=== PATIENT | male | born 1940 | race Caucasian/White ===

== ENCOUNTER 2016-04-28 05:17 | Inpatient (IN) | payer BC, MEDICARE ==
--- NOTE | 2016-04-24 09:39 | PREOPHP ---
DATE OF ADMISSION: 04/28/2016 This patient is being admitted electively on 04/28/[address] Ashwin Song. CHIEF COMPLAINT: for R total knee replacement. HISTORY OF PRESENT ILLNESS: This 75-year-old man underwent a right total knee replacement on 11/05/[address] Song. The patient developed pain and swelling of the right knee and underwent a right knee prosthesis removal on . 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 The patient had a rehabilitation program postoperatively that included a 2-week convalescent period in the acute rehab unit at [facility]. The patient was also on IV antibiotics, which he completed a 6-weeks course of. He is now being admitted to have the right knee prosthesis replaced. The patient has a history of chronic atrial fibrillation. He is on Xarelto, which was discontinued preoperatively. He saw his sales recruiting coordinator, Dr. Stan Gonsalves preoperatively and was cleared for this surgery. CURRENT MEDICATIONS: 1. Simvastatin 40 mg a day. 2. Finasteride 5 mg a day. 3. Synthroid 75 mcg a day. 4. Lunesta 3 mg at bedtime. 5. Timoptic Ocudose 1 drop 2 times a day in both eyes. 6. Xalatan 1 drop at bedtime in each eye. 7. Aspirin 81 mg coated once daily, discontinued 1 week preoperatively. 8. Tamsulosin 0.4 mg twice a day. 9. Levothyroxine 88 mcg a day. 10. ProAir HFA 2 puffs 4 times a day. 11. Advair Diskus 500/50 one puff twice a day. 12. Denise 60 mg twice a day. 13. Montelukast 10 mg a day. 14. Nasonex 2 sprays in each nostril once a day. 15. Travoprost ophthalmic 1 drop in each eye in the evening. 16. Potassium citrate 10 mEq extended release 3 times a day. 17. Spiriva 1 puff once a day. 18. Vitamin D3 50,000 units once a month. PAST MEDICAL HISTORY: Remarkable for atrial fibrillation, hyperlipidemia, hypothyroidism, glaucoma, asthma, prostatism, allergic rhinitis, sleep apnea. ALLERGIES: NO KNOWN DRUG ALLERGIES. PAST SURGICAL HISTORY: Right shoulder surgery, left knee arthroscopy, colon cancer resection, left total knee replacement in 2011, right total knee replacement 10/2015, right prosthesis removed 01/2016 because of the infection. FAMILY HISTORY: Unremarkable. SOCIAL HISTORY: He does not smoke, drinks alcohol socially. 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 REVIEW OF SYSTEMS: CONSTITUTIONAL: No chills, no weight gain, no loss of appetite, no fever, no weakness, no weight loss, no fatigue. OPHTHALMOLOGIC: Negative. EARS, NOSE AND THROAT: Negative. CARDIORESPIRATORY: He denies any exertional chest pain, chest pressure. He does have atrial fibrillation, controlled rate. He does have asthma which is controlled on medications. GASTROINTESTINAL: Negative, except for constipation. HEMATOLOGIC AND LYMPHATICS: Negative, although he is on anticoagulants chronically for his atrial fibrillation. UROLOGIC: He does have difficulty urinating because of benign prostatic hypertrophy, which is controlled on medication. PHYSICAL EXAMINATION: GENERAL: At this time reveals a well-developed man in no apparent distress. VITAL SIGNS: Blood pressure 126/80, heart rate 92. HEENT: Head normocephalic. EYES: Extraocular muscles intact. NOSE AND MOUTH: Normal. NECK: Supple. No neck vein distention. HEART: Irregularly irregular rhythm. No murmurs, gallops or rubs. ABDOMEN: Soft, nontender, no masses or megaly. BACK: No spinal or CVA tenderness. EXTREMITIES: No peripheral edema. Pedal pulses are 2+ bilaterally. IMPRESSION: This patient is cleared for surgery. I will follow the patient postoperatively. Dictated By: PRACHI DAY MD, ND/NAGI Conf#: [id number] DID#: [id number] MTDD
[2016-04-28] VITALS (24 sets, daily range): BP systolic 64–140; BP diastolic 46–91; PULSE 77–160; RESP 15–22; Ht 195.6 cm; Wt 84.2 kg
[~2016-04-28] VITALS: Ht 195.6 cm; Wt 84.2 kg
[~2016-04-28 05:17] MED LIST: ALBU8.5H3 INH; ESZO3TAB12 PO; FEXO60TA20 PO; FINA5TAB4 PO; FLUT12HF IH; LEVO75TA75 PO; MONT10TA24 PO; RIVA20TA PO; SMV40T PO; TIOT18CA INHALATION; TRAV2.5D4 BOTH EYES; [UNRECOGNIZED DRUG - CODE] PO
[2016-04-28] MEDS: LACTATED RINGER'S 1,000 ML IV SCH (05:43)
[2016-04-28] MEDS ORDERED: CEFAZOLIN 2 GM/50 ML (PMX) 50 ML IVPB ONE (06:00)
[2016-04-28] MEDS ORDERED: BUPIVACAINE 0.5% (SDV) 40 ML, morphine SULFATE (PF) 10 MG, CLONIDINE 100 MCG, EPINEPHri... IRR SCH ×14 (06:00)
[2016-04-28] MEDS ORDERED: TRANEXAMIC ACID 790 MG in SOD CHLORIDE 0.9% 100 ML IVPB ONE ×6 (06:00)
[2016-04-28] MEDS ORDERED: VANCOMYCIN 500MG/NS (PMX) 100 ML IVPB ONE (06:00)
[2016-04-28] MEDS ORDERED: FAMOTIDINE 20 MG TAB PO ONE (06:00)
[2016-04-28] MEDS ORDERED: METOCLOPRAMIDE 10 MG TAB PO ONE (06:00)
[2016-04-28] MEDS ORDERED: DEXAMETHASONE 4 MG/ML 1 ML INJ IV ONE (06:00)
[2016-04-28] MEDS ORDERED: CELECOXIB 200 MG CAP PO ONE (06:00)
[2016-04-28] MEDS ORDERED: VANCOMYCIN 500MG/NS (PMX) 100 ML IVPB SCH (06:30)
[2016-04-28] MEDS ORDERED: NALOXONE (0.4 MG/ML) INJ IV PRN ×2 (06:30→08:00)
[2016-04-28] MEDS ORDERED: HYDROmorphONE 2 MG/ML SYG IV PRN (06:30)
[2016-04-28] MEDS ORDERED: HYDROmorphONE 1 MG/ML SYG IV PRN (06:30)
[2016-04-28] MEDS ORDERED: ONDANSETRON 4 MG INJ IV PRN ×2 (06:30→08:00)
[2016-04-28] MEDS ORDERED: MAGNESIUM HYDROXIDE 30ML CUP PO PRN (06:30)
[2016-04-28] MEDS ORDERED: ASPIRIN (EC) 325 MG TAB PO ONE (06:30)
[2016-04-28] MEDS ORDERED: OXYCODONE/ACETAMINOPHEN (5/325) TAB PO PRN (06:30)
[2016-04-28] MEDS ORDERED: ACETAMINOPHEN 500 MG TAB PO PRN (06:30)
[2016-04-28 06:37] LABS: INR 1.27; PT RATIO 1.3
[2016-04-28 06:38] LABS: PARTIAL THROMBOPLASTIN TIME 33.6 Sec (25.0-35.0)
[2016-04-28] MEDS ORDERED: VANCOMYCIN 1 GM INJ ONE (06:50)
[2016-04-28] MEDS ORDERED: POLYMYXIN/BACITRACIN 1L IRRIG ONE ×2 (06:50→14:59)
[2016-04-28] MEDS ORDERED: TAMS0.4C2 PO (06:58)
[2016-04-28] MEDS ORDERED: NASO17 NASAL (06:58)
[2016-04-28] MEDS ORDERED: CHOL100062 PO (06:58)
[2016-04-28] MEDS ORDERED: MIDAZOLAM 1 MG/ML 2 ML INJ ONE (07:03)
[2016-04-28] MEDS ORDERED: FENTAnyl 50 MCG/ML VIAL ONE (07:03)
[2016-04-28] MEDS ORDERED: morphine SULFATE/PF (10 MG/10 ML) INJ ONE (07:03)
[2016-04-28] MEDS ORDERED: DIPHENHYDRAMINE 50 MG INJ IV PRN (08:00)
[2016-04-28] MEDS ORDERED: FENTAnyl 50 MCG/ML VIAL IV PRN (08:00)
[2016-04-28] MEDS ORDERED: HYDROmorphONE (0.2 MG/ML) 10ML SYG IV PRN ×2 (08:00)
[2016-04-28] MEDS ORDERED: MEPERIDINE 25 MG INJ IV PRN (08:00)
[2016-04-28] MEDS ORDERED: TOBRAMYCIN 1.2 GM POWDER ONE ×2 (08:14→08:25)
--- NOTE | 2016-04-28 10:03 | RADRPT ---
PROCEDURE: XR Right Tibia and Fibula. CLINICAL INDICATION: Right lower leg pain. Intraoperative. TECHNIQUE: Single frontal view. Limited. COMPARISON: No prior studies are available for comparison. FINDINGS: This is a limited study as the knee is not included on the image. There is a surgical device overly ing the ankle. IMPRESSION: 1. Satisfactory limited frontal view of the right tibia and fibula. RPTAT: QQ .Elmer Torres MD, MD Date Time Electronically viewed and signed by .Elmer Torres MD, MD on 04/28/2016 10:02 .R/
[2016-04-28] MEDS ORDERED: LIDOCAINE 2% (SDV) 5 ML INJ ONE (10:38)
[2016-04-28] MEDS ORDERED: ETOMIDATE 20 MG INJ ONE (10:38)
[2016-04-28] MEDS ORDERED: ROCURONIUM 50 MG INJ ONE (10:38)
[2016-04-28] MEDS ORDERED: ONDANSETRON 4 MG INJ ONE (10:38)
[2016-04-28] MEDS ORDERED: ROPIVACAINE 0.5 % 30 ML VIAL ONE (11:02)
[2016-04-28] MEDS ORDERED: BUPIVACAINE 0.25%/EPI (SDV) 30 ML INJ ONE (11:03)
[2016-04-28] MEDS ORDERED: DILTIAZEM 25 MG INJ IV ONE (12:30)
[2016-04-28] MEDS ORDERED: DILTIAZEM-D5W 125MG/125ML DRIP 125 ML IV SCH (12:30)
--- NOTE | 2016-04-28 14:54 | RADRPT ---
PROCEDURE: Right knee radiographs. CLINICAL INDICATION: Right knee pain. Postop. TECHNIQUE: Two views. Frontal and lateral. COMPARISON: 02/04/2016. FINDINGS: There is no fracture or dislocation. The soft tissues are normal. There is a total right knee arthroplasty revision which appears satisfactory. There is no lytic or blastic lesion. There is a joint effusion. IMPRESSION: 1. Right knee arthroplasty revision. 2. Fluid in the joint. 3. No lytic lesion. RPTAT: QQ .Elmer Torres MD, MD Date Time Electronically viewed and signed by .Elmer Torres MD, MD on 04/28/2016 14:53 .R/
[2016-04-28 15:13] LABS: HEMATOCRIT 32.5 % (42.0-52.0); HEMOGLOBIN 10.5 g/dl (14.0-18.0); MEAN CORPUSCULAR HEMOGLOBIN 26.3 pg (29.0-33.0); MEAN CORPUSCULAR HGB CONC 32.4 g/dl (32.0-37.0); MEAN CORPUSCULAR VOLUME 81.2 fl (82.0-101.0); PLATELET COUNT 190 10^3/UL (140-440); RED BLOOD COUNT 3.99 10^6/ul (4.70-6.10); RED CELL DISTRIBUTION WIDTH 16.9 % (11.5-14.5); UNCORRECTED WBC 9.5 10^3/ul (4.8-10.8); WHITE BLOOD COUNT 9.5 10^3/ul (4.8-10.8)
[2016-04-28 15:21] LABS: CONDITION 1; LH ANALYZER COMMENTS 1
[2016-04-28 15:32] LABS: CREATININE 0.52 mg/dl (0.61-1.24); POTASSIUM 4.4 mmol/L (3.5-5.1)
[2016-04-28 15:33] LABS: CALCIUM 8.9 mg/dl (8.4-10.2)
[2016-04-28 16:00] LABS: ANISOCYTOSIS 1+; HYPOCHROMASIA 2+; MICROCYTOSIS 1+; PLATELET ESTIMATE PLT APPEAR ADEQUATE
[2016-04-28] MEDS: D5W-0.45 NACL + KCL 20 MEQ 1,000 ML IV SCH ×2 (16:13→16:22)
[2016-04-28] MEDS: traMADol 50 MG TAB PO SCH (17:47)
[2016-04-28] MEDS ORDERED: ESZOPICLONE 3 MG PO SCH (19:00)
[2016-04-28] MEDS: VANCOMYCIN 1 GM in NS 250 ML IVPB SCH (19:32)
--- NOTE | 2016-04-28 20:46 | CONS ---
Date/Time of Note Date/Time of Note DATE: 04/28/16 TIME: 20:39 Assessment/Plan Assessment/Plan Additional Assessment/Plan A/P: This 75-year-old man underwent a right total knee replacement on [address] Song. The patient developed pain and swelling of the right knee and underwent a right knee prosthesis removal on 02/04/2016. 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 The patient had a rehabilitation program postoperatively that included a 2-week convalescent period in the acute rehab unit at . The patient was also on IV antibiotics, which he completed a 6-weeks course of. He is now being admitted to have the right knee prosthesis replaced. The patient has a history of chronic atrial fibrillation. He is on Xarelto, which was discontinued preoperatively. He saw his wait staff, Dr. Stan Gonsalves preoperatively and was cleared for this surgery. 1) Afib with RVR: patient HR in 160's post operatively, started on Cardizem drip , titrate for HR <110, improved now -start on short acting CCB, monitor HR, avoid BB due to reactive airway -Cardizem 30mg po q8h, hold for hypotension/ananda 2) s/p R knee ORIF, appropriate pain, no neurovascular compromise. check AM Labs -pain meds: start neurotin, oxycotin, oxycodone prn, dilaudid prn -rehab in AM 3) BPH: meds, d/c palm in AM 4) Hypothyroid: synthriod 5) Glaucoma: ggt 6) FULL CODE For Dr. Jones Consultation Date/Type/Reason Admit Date/Time Apr 28, 2016 at 05:17 Initial Consult Date Type of Consultation: Medicine Reason for Consultation AFib with RVR, pain, medical management of COPD 24 HR Interval Summary Constitutional: no complaints Exam/Review of Systems Vital Signs Vitals Vital Signs Date Time Temp Pulse Resp B/P Pulse Ox O2 Delivery O2 Flow Rate FiO2 04/28/16 20:07 97.5 86 18 107/67 96 04/28/16 13:16 Nasal Cannula 04/28/16 12:46 3.0 Intake and Output 04/27/16 04/27/16 04/28/16 15:00 23:00 07:00 Intake Total 1000 ml Balance 1000 ml Exam Constitutional: alert, oriented, well developed Psych: no complaints Head: atraumatic, normocephalic Eyes: nl conjunctiva Neck: supple Respiratory: clear to auscultation, normal air movement Cardiovascular: irregular rhythm, systolic murmur Gastrointestinal: soft Musculoskeletal: nl extremities to inspection, other Extremities: normal pulses Neurological: GYM MANAGER II-XII intact, nl mental status Skin: nl turgor Additional Comments R knee dressing d/c/i, no edema, no toe cyanosis Results Result Diagram: 04/28/16 1455 04/28/16 1455 Results 24 hrs Laboratory Tests Test 04/28/16 06:10 04/28/16 14:55 Activated Partial Thromboplast Time 33.6 INR International Normalized Ratio 1.27 Prothrombin Time 16.0 H Prothrombin Time Ratio 1.3 Anion Gap 11 Anisocytosis 1+ Basophils # Basophils % Blood Morphology Comment Blood Urea Nitrogen 15 Calcium Level 8.9 Carbon Dioxide Level 24 Chloride Level 106 Creatinine 0.52 L Eosinophils # Eosinophils % Glucose Level 185 Hematocrit 32.5 L Hemoglobin 10.5 L Hypochromasia 2+ Lymphocytes # Lymphocytes % Mean Corpuscular Hemoglobin 26.3 L Mean Corpuscular Hemoglobin Concent 32.4 Mean Corpuscular Volume 81.2 L Mean Platelet Volume 9.0 Microcytosis 1+ Monocytes # Monocytes % Neutrophils # Neutrophils % Nucleated Red Blood Cells # Nucleated Red Blood Cells % Platelet Count 190 # Platelet Estimate PLT APPEAR ADEQUATE Potassium Level 4.4 Red Blood Count 3.99 L Red Cell Distribution Width 16.9 H Sodium Level 137 White Blood Count 9.5 # Medications Medications Current Medications Lactated Ringer's (Lr) 1,000 ml @ 25 mls/hr Q24H IV ; Start 04/28/16 at 05:43 Tramadol HCl (Ultram) 50 mg Q6 PO Last administered on 04/28/16t 17:47; Admin Dose 50 MG; Start 04/28/16 at 18:00 Oxycodone/ Acetaminophen (Percocet (5/ 325)) 1 tab Q3H PRN PO PAIN LEVEL 1-5; Start 04/28/16 at 06:30 Oxycodone/ Acetaminophen (Percocet (5/ 325)) 2 tab Q3H PRN PO PAIN LEVEL 6-10; Start 04/28/16 at 06:30 Hydromorphone HCl (Dilaudid) 1 mg Q3H PRN IV PAIN LEVEL 1-3 Last administered on 04/28/16 15:12; Admin Dose 1 MG; Start 04/28/16 at 06:30 Hydromorphone HCl (Dilaudid) 1.5 mg Q3H PRN IV PAIN LEVEL 4-6 Last administered on 04/28/16 18:30; Admin Dose 1.5 MG; Start 04/28/16 at 06:30 Hydromorphone HCl (Dilaudid) 2 mg Q3H PRN IV PAIN LEVEL 7-10; Start 04/28/16 at 06:30 Naloxone HCl (Narcan) 0.2 mg Q2M PRN IV RESPIRATORY RATE LESS THAN 8; Start at 06:30 Senna/Docusate Sodium (Senokot-S) 1 tab BID PO ; Start 04/28/16 at 21:00 Magnesium Hydroxide (Milk Of Mag) 30 ml BID PRN PO CONSTIPATION; Start at 06:30 Magnesium Hydroxide (Milk Of Mag) 30 ml HS PO ; Start 04/30/16 at 21:00 Ondansetron HCl (Zofran Inj) 4 mg Q4H PRN IV NAUSEA; Start 04/28/16 at 06:30 Acetaminophen (Tylenol Tab) 1,000 mg Q4H PRN PO TEMP GREATER THAN 100.4 (ORAL) ; Start 04/28/16 at 06:30 Celecoxib (Celebrex) 200 mg BID PO ; Start 04/28/16 at 21:00 Famotidine (Pepcid) 20 mg BID PO ; Start 04/28/16 at 21:00 Metoclopramide HCl (Reglan) 10 mg BID PO ; Start 04/28/16 at 21:00 Aspirin 325 mg 325 mg BID PO ; Start 04/29/16 at 09:00 Potassium Chloride/Dextrose/ Sod Cl (D5-1/2ns + KCl 20 Meq) 1,000 ml @ 100 mls/ hr Q10H IV Last administered on 04/28/16 16:13; Admin Dose 100 MLS/HR; Start 04/28/16 at 06:22 Naloxone HCl 0.2 mg 0.2 mg Q2M PRN IV FOR RESP RATE 8 OR LESS; Start 04/28/16 at 08:00; Stop 04/29/16 at 07:00 Diltiazem HCl 125 ml @ 5 mls/hr TITRATE IV Last administered on 04/28/16t 12:22 ; Admin Dose 3 MLS/HR; Start 04/28/16 at 12:30 Vancomycin HCl (Vancocin) 250 ml @ 125 mls/hr Q12H IVPB Last administered on t 19:32; Admin Dose 125 MLS/HR; Start 04/28/16 at 18:00; Stop 04/29/16 at 07:59 Influenza Virus Vaccine (Fluzone) 0.5 ml ONCE ONCE IM* ; Start 04/29/16 at 09:00 ; Stop 04/29/16 at 09:01 Albuterol (Ventolin Hfa) 2 puff Q4 INH ; Start 04/28/16 at 21:00 Finasteride (Proscar) 5 mg DAILY PO ; Start 04/29/16 at 09:00 Levothyroxine Sodium (Synthroid) 75 mcg DAILY PO ; Start 04/29/16 at 09:00 Montelukast Sodium (Singulair) 10 mg QHS PO ; Start 04/28/16 at 21:00 Tamsulosin HCl (Flomax) 0.4 mg BID PO ; Start 04/28/16 at 21:00 Tiotropium Winn (Spiriva) 1 inh DAILY INH ; Start 04/29/16 at 09:00 Zolpidem Tartrate (Ambien) 5 mg HS PRN PO INSOMNIA; Start 04/28/16 at 19:30 Loratadine (Claritin) 10 mg DAILY PO ; Start 04/29/16 at 09:00 Fluticasone Propionate (Flonase 0.05% Nasal) 1 spray DAILY NASAL ; Start at 09:00 Latanoprost (Xalatan) 1 drop QHS BOTH EYES ; Start 04/28/16 at 21:00 Atorvastatin Calcium (Lipitor) 20 mg DAILY@21 PO ; Start 04/28/16 at 21:00 Salmeterol Xinafoate/ Fluticasone (Advair 250/50 Diskus) 1 inh BID INH ; Start 04/28/16 at 21:00 YOCASTA RODRIGUEZ MD Apr 28, 2016 20:45
[2016-04-28] MEDS: CELECOXIB 200 MG CAP PO SCH ×2 (21:00→21:29)
[2016-04-28] MEDS ORDERED: TRAVOPROST 0.004% 2.5 ML OPH BOTH EYES SCH (21:00)
[2016-04-28] MEDS ORDERED: FEXOFENADINE HCL 60 MG PO SCH ×2 (21:00)
[2016-04-28] MEDS ORDERED: NON-FORMULARY/PATIENT OWN MED (Salmeterol Xinaf-Fluticasone* (Advair HFA*) 2 INH) IH SCH (21:00)
[2016-04-28] MEDS: HYDROmorphONE 2 MG/ML SYG IV PRN (21:26)
[2016-04-28] MEDS: TAMSULOSIN (SR) 0.4 MG CAP PO SCH (21:29)
[2016-04-28] MEDS: MONTELUKAST 10 MG TAB PO SCH (21:29)
[2016-04-28] MEDS: LATANOPROST 0.005% 2.5 ML OPH BOTH EYES SCH (21:29)
[2016-04-28] MEDS: ALBUTEROL HFA 8 GM INHALER INH SCH (21:30)
[2016-04-28] MEDS: ATORVASTATIN 20 MG TAB PO SCH (21:31)
[2016-04-28] MEDS: FAMOTIDINE 20 MG TAB PO SCH (21:31)
[2016-04-28] MEDS: METOCLOPRAMIDE 10 MG TAB PO SCH (21:31)
[2016-04-28] MEDS: SENNA/DOCUSATE NA (8.6MG/50MG) TAB PO SCH (21:31)
[2016-04-28] MEDS: ZOLPIDEM 5 MG TAB PO PRN (23:17)
[2016-04-28] MEDS: SALMETEROL/FLUTICASONE 250/50 INHA INH SCH (23:17)
[2016-04-29] VITALS (13 sets, daily range): BP systolic 105–123; BP diastolic 64–78; PULSE 70–90; RESP 17–18
[2016-04-29] MEDS: ALBUTEROL HFA 8 GM INHALER INH SCH ×6 (01:00→20:59)
[2016-04-29] MEDS: D5W-0.45 NACL + KCL 20 MEQ 1,000 ML IV SCH ×3 (02:22→21:00)
[2016-04-29] MEDS: HYDROmorphONE 2 MG/ML SYG IV PRN ×5 (03:04→20:35)
[2016-04-29] MEDS: VANCOMYCIN 1 GM in NS 250 ML IVPB SCH (04:36)
[2016-04-29] MEDS: DILTIAZEM 30 MG TAB PO SCH ×5 (04:37→23:32)
[2016-04-29] MEDS: LACTATED RINGER'S 1,000 ML IV SCH (04:38)
[2016-04-29] MEDS: traMADol 50 MG TAB PO SCH ×5 (04:38→23:32)
--- NOTE | 2016-04-29 07:10 | OPR ---
DATE OF OPERATION: 04/28/2016 SURGEON: Ashwin Song MD ANNEALER: Suraj Wilson MD The assistance functioned throughout the case to protect the collateral ligament patellar tendon and allow for positioning of the knee and cementation technique and was instrumental to the performance of this procedure. OPERATION: Explant antibiotic impregnated knee replacement revision, Terrie, with 20-mm diameter femoral stem size G, 6 tibia with stem 14-mm plastic, 35-mm poly. ANESTHESIA: Spinal plus general plus right adduction nerve block. DESCRIPTION OF PROCEDURE: Patient was taken to the operating room, given spinal anesthesia, general anesthesia. Right lower extremity prepped and draped in usual manner. Right knee lacked 5 degrees of extension, flexed to 120. Median parapatellar incision was made. A 3-inch incision made VMO. There was no fluid, no sign of purulents. No significant inflammatory synovium. Nonetheless, we took 5 biopsies from superior pouch intercondylar medial lateral gutters, and posterior. Called pathology who did 5 frozen sections and saw occasional rare WBCs, none even close to 5 white cells per high-powered field. It was therefore felt to be safe to proceed with explant. The all-poly tibia was removed without problems. Femur came off easily. We were able to remove all the cement with minimal bone loss. He had some bone loss on the medial distal femur on his original surgery and slight decrease on the lateral. Tibia was delivered. External guide to first do a small re-cut. The intermedullary guide was then used. Three #3 offset on the tibial stem was required for rotation and tibial coverage. This was then fixed, stabilized. The femur was then reamed up to an 18 femur placed. An additional 3 to 5 degrees of external rotation was carried out, going with the epicondylar access. Intraoperative x-rays were taken, demonstrating that the femur was slightly lateral. This was then removed, and then we medialized the box so as to medialize the femur 3 to 4 mm. We had a 10-mm distal medial augment, 5-mm distal lateral augment, and a 5-mm posterolateral augment. With a 14, we had complete extension, trace to 1+ varus valgus symmetric laxity, and trace to 1+ AP drawer. The patella tracked with trial no-touch technique. The tourniquet had been inflated for exposure 20 minutes and left down for the remainder of the case, and then put up for cementing. The tibia was cemented first, then the femur, then set up with a trial 14, and all poly, 35 all poly patella. A 14 polyethylene was chosen with similar laxity pattern as noted above. Tourniquet released and it was 12 minutes. Hemostasis was excellent. The capsule was closed with interrupted #1 Vicryl, subcutaneous closed with 2-0 and 3-0 Dexon, skin closed with 4-0 subcuticular Maxon with Steri-Strips. LISBETH compressive dressing applied. The adductor nerve block was performed at the end. The patient tolerated the procedure well. Dictated By: ASHWIN BACON/NAGI Conf#: [id number] DID#: [id number] MTDD
[2016-04-29 07:26] LABS: BASOPHILS % 0.1 % (0.0-2.0); HEMATOCRIT 28.6 % (42.0-52.0); HEMOGLOBIN 9.6 g/dl (14.0-18.0); LYMPHOCYTES # 1.5 10^3/ul (0.8-2.9); LYMPHOCYTES % 14.2 % (15.0-51.0); MEAN CORPUSCULAR HEMOGLOBIN 27.1 pg (29.0-33.0); MEAN CORPUSCULAR HGB CONC 33.4 g/dl (32.0-37.0); MEAN CORPUSCULAR VOLUME 80.9 fl (82.0-101.0); MEAN PLATELET VOLUME 9.7 fl (7.4-10.4); MONOCYTE # 1.3 10^3/ul (0.3-0.9); MONOCYTES % 12.4 % (0.0-11.0); NEUTROPHIL # 7.5 10^3/ul (1.6-7.5); NEUTROPHILS % 73.3 % (39.0-77.0); PLATELET COUNT 185 10^3/UL (140-440); RED BLOOD COUNT 3.53 10^6/ul (4.70-6.10); RED CELL DISTRIBUTION WIDTH 17.3 % (11.5-14.5); UNCORRECTED WBC 10.3 10^3/ul (4.8-10.8); WHITE BLOOD COUNT 10.3 10^3/ul (4.8-10.8)
[2016-04-29 07:36] LABS: POTASSIUM 4.8 mmol/L (3.5-5.1)
[2016-04-29 07:39] LABS: CREATININE 0.66 mg/dl (0.61-1.24)
[2016-04-29 07:40] LABS: CALCIUM 9.1 mg/dl (8.4-10.2)
[2016-04-29 07:43] LABS: CONDITION 1; LH ANALYZER COMMENTS 1
--- NOTE | 2016-04-29 07:56 | CONS ---
Date/Time of Note Date/Time of Note DATE: 04/29/16 TIME: 07:47 Assessment/Plan Assessment/Plan Chief Complaint/Hosp Course 1. one day post op a R TKR . 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 2. A fib , controlled rate , will restart Xarelto today . Cardiology consultation . 3, asthma , controlled 4. sleep apnea , he is using his CPAP machine Problems: Consultation Date/Type/Reason Admit Date/Time Apr 28, 2016 at 05:17 Initial Consult Date Type of Consultation: Medicine 24 HR Interval Summary Free Text/Dictation He is now 1 day post op a R TKR . He had an episode of uncontrolled A Fib . He is now in controlled rate . Constitutional: improved, no complaints Exam/Review of Systems Vital Signs Vitals Vital Signs Date Time Temp Pulse Resp B/P Pulse Ox O2 Delivery O2 Flow Rate FiO2 04/29/16 04:08 97.5 80 18 107/67 96 04/28/16 20:00 Room Air 04/28/16 12:46 3.0 Intake and Output 04/28/16 04/28/16 04/29/16 15:00 23:00 07:00 Intake Total 307.9 ml 350 ml 740 ml Output Total 1100 ml 700 ml 800 ml Balance -792.1 ml -350 ml -60 ml Exam Constitutional: alert, oriented, well developed Psych: nl mood/affect, no complaints Respiratory: clear to auscultation, normal air movement Cardiovascular: irregular rhythm Gastrointestinal: soft Musculoskeletal: nl extremities to inspection Results Result Diagram: 04/29/16 0615 04/29/16 0615 Results 24 hrs Laboratory Tests Test 04/28/16 14:55 04/29/16 06:15 Anion Gap 11 12 Anisocytosis 1+ Basophils # 0.0 Basophils % 0.1 Blood Morphology Comment Blood Urea Nitrogen 15 17 Calcium Level 8.9 9.1 Carbon Dioxide Level 24 28 Chloride Level 106 102 Creatinine 0.52 L 0.66 Eosinophils # 0.0 Eosinophils % 0.0 Glucose Level 185 117 # Hematocrit 32.5 L 28.6 L Hemoglobin 10.5 L 9.6 L Hypochromasia 2+ Lymphocytes # 1.5 Lymphocytes % 14.2 L Mean Corpuscular Hemoglobin 26.3 L 27.1 L Mean Corpuscular Hemoglobin Concent 32.4 33.4 Mean Corpuscular Volume 81.2 L 80.9 L Mean Platelet Volume 9.0 9.7 Microcytosis 1+ Monocytes # 1.3 H Monocytes % 12.4 H Neutrophils # 7.5 Neutrophils % 73.3 Nucleated Red Blood Cells # 0.0 Nucleated Red Blood Cells % 0.0 Platelet Count 190 # 185 Platelet Estimate PLT APPEAR ADEQUATE Potassium Level 4.4 4.8 Red Blood Count 3.99 L 3.53 L Red Cell Distribution Width 16.9 H 17.3 H Sodium Level 137 137 White Blood Count 9.5 # 10.3 Medications Medications Current Medications Lactated Ringer's (Lr) 1,000 ml @ 25 mls/hr Q24H IV ; Start 04/28/16 at 05:43 Tramadol HCl (Ultram) 50 mg Q6 PO Last administered on 04/29/16 04:38; Admin Dose 50 MG; Start 04/28/16 at 18:00 Oxycodone/ Acetaminophen (Percocet (5/ 325)) 1 tab Q3H PRN PO PAIN LEVEL 1-5; Start 04/28/16 at 06:30 Oxycodone/ Acetaminophen (Percocet (5/ 325)) 2 tab Q3H PRN PO PAIN LEVEL 6-10; Start 04/28/16 at 06:30 Hydromorphone HCl (Dilaudid) 1 mg Q3H PRN IV PAIN LEVEL 1-3 Last administered on 04/28/16 15:12; Admin Dose 1 MG; Start 04/28/16 at 06:30 Hydromorphone HCl (Dilaudid) 1.5 mg Q3H PRN IV PAIN LEVEL 4-6 Last administered on 04/28/16 18:30; Admin Dose 1.5 MG; Start 04/28/16 at 06:30 Hydromorphone HCl (Dilaudid) 2 mg Q3H PRN IV PAIN LEVEL 7-10 Last administered on 04/29/16 03:04; Admin Dose 2 MG; Start 04/28/16 at 06:30 Naloxone HCl (Narcan) 0.2 mg Q2M PRN IV RESPIRATORY RATE LESS THAN 8; Start at 06:30 Senna/Docusate Sodium (Senokot-S) 1 tab BID PO Last administered on 04/28/16 21:31; Admin Dose 1 TAB; Start 04/28/16 at 21:00 Magnesium Hydroxide (Milk Of Mag) 30 ml BID PRN PO CONSTIPATION; Start at 06:30 Magnesium Hydroxide (Milk Of Mag) 30 ml HS PO ; Start 04/30/16 at 21:00 Ondansetron HCl (Zofran Inj) 4 mg Q4H PRN IV NAUSEA; Start 04/28/16 at 06:30 Acetaminophen (Tylenol Tab) 1,000 mg Q4H PRN PO TEMP GREATER THAN 100.4 (ORAL) ; Start 04/28/16 at 06:30 Celecoxib (Celebrex) 200 mg BID PO ; Start 04/28/16 at 21:00 Famotidine (Pepcid) 20 mg BID PO Last administered on 04/28/16 21:31; Admin Dose 20 MG; Start 04/28/16 at 21:00 Metoclopramide HCl (Reglan) 10 mg BID PO Last administered on 04/28/16 21:31; Admin Dose 10 MG; Start 04/28/16 at 21:00 Aspirin 325 mg 325 mg BID PO ; Start 04/29/16 at 09:00 Potassium Chloride/Dextrose/ Sod Cl 1,000 ml @ 100 mls/hr Q10H IV Last administered on 04/28/16 16:13; Admin Dose 100 MLS/HR; Start 04/28/16 at 06:22 Vancomycin HCl (Vancocin) 250 ml @ 125 mls/hr Q12H IVPB Last administered on 04:36; Admin Dose 125 MLS/HR; Start 04/28/16 at 18:00; Stop 04/29/16 at 07:59 Influenza Virus Vaccine (Fluzone) 0.5 ml ONCE ONCE IM* ; Start 04/29/16 at 09:00 ; Stop 04/29/16 at 09:01 Albuterol (Ventolin Hfa) 2 puff Q4 INH Last administered on 04/29/16 04:37; Admin Dose 2 PUFF; Start 04/28/16 at 21:00 Finasteride (Proscar) 5 mg DAILY PO ; Start 04/29/16 at 09:00 Levothyroxine Sodium (Synthroid) 75 mcg DAILY PO ; Start 04/29/16 at 09:00 Montelukast Sodium (Singulair) 10 mg QHS PO Last administered on 04/28/16 21: 29; Admin Dose 10 MG; Start 04/28/16 at 21:00 Tamsulosin HCl (Flomax) 0.4 mg BID PO Last administered on 04/28/16 21:29; Admin Dose 0.4 MG; Start 04/28/16 at 21:00 Tiotropium Artesian (Spiriva) 1 inh DAILY INH ; Start 04/29/16 at 09:00 Zolpidem Tartrate (Ambien) 5 mg HS PRN PO INSOMNIA Last administered on 23:17; Admin Dose 5 MG; Start 04/28/16 at 19:30 Loratadine (Claritin) 10 mg DAILY PO ; Start 04/29/16 at 09:00 Fluticasone Propionate (Flonase 0.05% Nasal) 1 spray DAILY NASAL ; Start at 09:00 Latanoprost (Xalatan) 1 drop QHS BOTH EYES Last administered on 04/28/16 21:29 ; Admin Dose 1 DROP; Start 04/28/16 at 21:00 Atorvastatin Calcium (Lipitor) 20 mg DAILY@21 PO Last administered on 21:31; Admin Dose 20 MG; Start 04/28/16 at 21:00 Salmeterol Xinafoate/ Fluticasone (Advair 250/50 Diskus) 1 inh BID INH Last administered on 04/28/16 23:17; Admin Dose 1 INH; Start 04/28/16 at 21:00 Diltiazem HCl (Cardizem) 30 mg Q6 PO Last administered on 04/29/16 04:37; Admin Dose 30 MG; Start 04/29/16 at 00:00 PRACHI DAY MD Apr 29, 2016 07:56
[2016-04-29] MEDS: CELECOXIB 200 MG CAP PO SCH ×2 (09:00→20:38)
[2016-04-29] MEDS ORDERED: ASPIRIN (EC) 325 MG TAB PO SCH (09:00)
[2016-04-29] MEDS ORDERED: NON-FORMULARY/PATIENT OWN MED (Simvastatin 40 MG) PO SCH (09:00)
[2016-04-29] MEDS: METOCLOPRAMIDE 10 MG TAB PO SCH ×2 (09:00→20:39)
[2016-04-29] MEDS ORDERED: MOMETASONE FUROATE NASAL SCH (09:00)
[2016-04-29] MEDS ORDERED: INFLUENZA VIRUS VACCINE 0.5 ML SYG IM* ONE (09:00)
[2016-04-29] MEDS: FLUTICASONE 0.05% 16 GM NAS SPRAY NASAL SCH (09:10)
[2016-04-29] MEDS: TIOTROPIUM 18 MCG CAPSULE INHA DEV INH SCH (09:10)
[2016-04-29] MEDS: LORATADINE 10 MG TAB PO SCH (09:11)
[2016-04-29] MEDS: TAMSULOSIN (SR) 0.4 MG CAP PO SCH ×2 (09:12→20:38)
[2016-04-29] MEDS: FAMOTIDINE 20 MG TAB PO SCH ×2 (09:12→20:39)
[2016-04-29] MEDS: LEVOTHYROXINE 75 MCG TAB PO SCH (09:13)
[2016-04-29] MEDS: SENNA/DOCUSATE NA (8.6MG/50MG) TAB PO SCH ×2 (09:13→20:39)
--- NOTE | 2016-04-29 09:40 | PN ---
DATE: 04/28/2016 TIME: 7 in the morning. The patient is comfortable. Vital signs stable. Decreased knee pain. No calf pain. IMPRESSION: 1. Status post right total knee revision. 2. Cardiac arrhythmia. PLAN: Per mobilized, medical per Dr. Trujillo. I transferred to the orthopedic when stable. Dictated By: DEON BACON/NAGI Conf#: [id number] DID#: [id number]
[2016-04-29] MEDS: SALMETEROL/FLUTICASONE 250/50 INHA INH SCH ×2 (11:27→20:43)
[2016-04-29] MEDS: FINASTERIDE 5 MG TAB PO SCH (11:27)
[2016-04-29] MEDS ORDERED: PNEUMOC 13-VAL CONJ-DIP CRM/PF 0.5 ML SYR IM* ONE (12:30)
[2016-04-29] MEDS: DOCUSATE SODIUM 100 MG CAP PO SCH ×2 (13:23→20:38)
[2016-04-29] MEDS: RIVAROXABAN 20 MG TABLET PO SCH (17:56)
[2016-04-29] MEDS ORDERED: RIVAROXABAN 20 MG TABLET PO SCH (18:05)
[2016-04-29] MEDS: ATORVASTATIN 20 MG TAB PO SCH (20:38)
[2016-04-29] MEDS: LATANOPROST 0.005% 2.5 ML OPH BOTH EYES SCH (20:57)
[2016-04-29] MEDS: MONTELUKAST 10 MG TAB PO SCH (21:09)
--- NOTE | 2016-04-29 21:57 | CONS ---
Date/Time of Note Date/Time of Note DATE: 04/29/16 TIME: 21:55 Assessment/Plan Assessment/Plan Chief Complaint/Hosp Course 1. Afib- chronic - cont rate control, switch to po dilt long acting - cont anticoag with xarelto, restart tonight 2. s/p R TKA, c/b infection previously - cont abx - cont pain control per primary/ortho 3. ELIANA - cont cpap Problems: Consultation Date/Type/Reason Admit Date/Time Apr 28, 2016 at 05:17 Date of Consultation: Apr 29, 2016 Type of Consultation: Cardiology Reason for Consultation Afib Referring Provider: PRACHI DAY MD s 75-year-old man with h/ of afib chronic on xarelto. Pt complicated course s/ p R TKA 10/2015 with prosthetic infxn requiring removal and IV abx. Pt now s/p replacement of r right knee. Pt doing wel post op but did have afib with increased rate. Pt denies cp,sob, palp, dizziness. he states xarelto will be started toda. Rate improved with iv diltiazem. still with r knee pain post procedure. worse with movement better with rest. Constitutional: improved, no complaints Eyes: no complaints ENT: no complaints Respiratory: no complaints Cardiovascular: no complaints Gastrointestinal: no complaints Genitourinary: no complaints Musculoskeletal: bone/joint pain Skin: no complaints Neurologic: no complaints Lymphatic: no complaints Psychological: nl mood/affect, no complaints Immunologic: no complaints Past Medical History Remarkable for atrial fibrillation, hyperlipidemia, hypothyroidism, glaucoma, asthma, prostatism, allergic rhinitis, sleep apnea. Past Surgical History Right shoulder surgery, left knee arthroscopy, colon cancer resection, left total knee replacement in 2011, right total knee replacement 10/2015, right prosthesis removed 01/2016 because of the infection. Family History Significant Family History: no pertinent family hx, other (no cad) Social History Alcohol Use: none Smoking Status: Never smoker Drug Use: none Exam/Review of Systems Vital Signs Vitals Vital Signs Date Time Temp Pulse Resp B/P Pulse Ox O2 Delivery O2 Flow Rate FiO2 04/29/16 20:44 90 04/29/16 20:35 98.5 17 123/78 95 04/28/16 20:00 Room Air 04/28/16 12:46 3.0 Intake and Output 04/28/16 04/28/16 04/29/16 15:00 23:00 07:00 Intake Total 307.9 ml 350 ml 740 ml Output Total 1100 ml 700 ml 800 ml Balance -792.1 ml -350 ml -60 ml Exam Constitutional: alert, oriented Psych: no complaints Head: atraumatic, normocephalic Eyes: nl conjunctiva ENMT: mucosa pink and moist, nl nasal mucosa & septum Neck: non-tender, supple, No jvd Respiratory: clear to auscultation, normal air movement Cardiovascular: irregular rhythm ( m), nl pulses, systolic murmur, NoS3 No S4 Gastrointestinal: nl liver, spleen, soft Musculoskeletal: joint tenderness, other (r knee c/d/i) Extremities: normal pulses 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, nl mental status, nl speech Results Result Diagram: 04/29/1661404/29/16614 Results 24 hrs Laboratory Tests Test 04/29/16 06:15 Anion Gap 12 Basophils # 0.0 Basophils % 0.1 Blood Morphology Comment Blood Urea Nitrogen 17 Calcium Level 9.1 Carbon Dioxide Level 28 Chloride Level 102 Creatinine 0.66 Eosinophils # 0.0 Eosinophils % 0.0 Glucose Level 117 # Hematocrit 28.6 L Hemoglobin 9.6 L Lymphocytes # 1.5 Lymphocytes % 14.2 L Mean Corpuscular Hemoglobin 27.1 L Mean Corpuscular Hemoglobin Concent 33.4 Mean Corpuscular Volume 80.9 L Mean Platelet Volume 9.7 Monocytes # 1.3 H Monocytes % 12.4 H Neutrophils # 7.5 Neutrophils % 73.3 Nucleated Red Blood Cells # 0.0 Nucleated Red Blood Cells % 0.0 Platelet Count 185 Potassium Level 4.8 Red Blood Count 3.53 L Red Cell Distribution Width 17.3 H Sodium Level 137 White Blood Count 10.3 Medications Medications Current Medications Lactated Ringer's (Lr) 1,000 ml @ 25 mls/hr Q24H IV ; Start 04/28/16 at 05:43 Tramadol HCl (Ultram) 50 mg Q6 PO Last administered on 04/29/16t 17:56; Admin Dose 50 MG; Start 04/28/16 at 18:00 Oxycodone/ Acetaminophen (Percocet (5/ 325)) 1 tab Q3H PRN PO PAIN LEVEL 1-5; Start 04/28/16 at 06:30 Oxycodone/ Acetaminophen (Percocet (5/ 325)) 2 tab Q3H PRN PO PAIN LEVEL 6-10; Start 04/28/16 at 06:30 Hydromorphone HCl (Dilaudid) 1 mg Q3H PRN IV PAIN LEVEL 1-3 Last administered on 04/28/16 15:12; Admin Dose 1 MG; Start 04/28/16 at 06:30 Hydromorphone HCl (Dilaudid) 1.5 mg Q3H PRN IV PAIN LEVEL 4-6 Last administered on 04/28/16 18:30; Admin Dose 1.5 MG; Start 04/28/16 at 06:30 Hydromorphone HCl (Dilaudid) 2 mg Q3H PRN IV PAIN LEVEL 7-10 Last administered on 04/29/16 20:35; Admin Dose 2 MG; Start 04/28/16 at 06:30 Naloxone HCl (Narcan) 0.2 mg Q2M PRN IV RESPIRATORY RATE LESS THAN 8; Start at 06:30 Senna/Docusate Sodium (Senokot-S) 1 tab BID PO Last administered on 04/29/16 20:39; Admin Dose 1 TAB; Start 04/28/16 at 21:00 Magnesium Hydroxide (Milk Of Mag) 30 ml BID PRN PO CONSTIPATION Last administered on 04/29/16 09:16; Admin Dose 30 ML; Start 04/28/16 at 06:30 Magnesium Hydroxide (Milk Of Mag) 30 ml HS PO ; Start 04/30/16 at 21:00 Ondansetron HCl (Zofran Inj) 4 mg Q4H PRN IV NAUSEA; Start 04/28/16 at 06:30 Acetaminophen (Tylenol Tab) 1,000 mg Q4H PRN PO TEMP GREATER THAN 100.4 (ORAL) ; Start 04/28/16 at 06:30 Celecoxib (Celebrex) 200 mg BID PO ; Start 04/28/16 at 21:00 Famotidine (Pepcid) 20 mg BID PO Last administered on 04/29/16 20:39; Admin Dose 20 MG; Start 04/28/16 at 21:00 Metoclopramide HCl 10 mg 10 mg BID PO Last administered on 04/29/16 20:39; Admin Dose 10 MG; Start 04/28/16 at 21:00 Potassium Chloride/Dextrose/ Sod Cl (D5-1/2ns + KCl 20 Meq) 1,000 ml @ 100 mls/ hr Q10H IV Last administered on 04/29/16 21:00; Admin Dose 100 MLS/HR; Start 04/28/16 at 06:22 Albuterol (Ventolin Hfa) 2 puff Q4 INH Last administered on 04/29/16 04:37; Admin Dose 2 PUFF; Start 04/28/16 at 21:00 Finasteride (Proscar) 5 mg DAILY PO Last administered on 04/29/16 11:27; Admin Dose 5 MG; Start 04/29/16 at 09:00 Levothyroxine Sodium (Synthroid) 75 mcg DAILY PO Last administered on 09:13; Admin Dose 75 MCG; Start 04/29/16 at 09:00 Montelukast Sodium (Singulair) 10 mg QHS PO Last administered on 04/29/16 21: 09; Admin Dose 10 MG; Start 04/28/16 at 21:00 Tamsulosin HCl (Flomax) 0.4 mg BID PO Last administered on 04/29/16 20:38; Admin Dose 0.4 MG; Start 04/28/16 at 21:00 Tiotropium [place] (Spiriva) 1 inh DAILY INH Last administered on 04/29/16 09: 10; Admin Dose 1 INH; Start 04/29/16 at 09:00 Zolpidem Tartrate (Ambien) 5 mg HS PRN PO INSOMNIA Last administered on 23:17; Admin Dose 5 MG; Start 04/28/16 at 19:30 Loratadine (Claritin) 10 mg DAILY PO Last administered on 04/29/16 09:11; Admin Dose 10 MG; Start 04/29/16 at 09:00 Fluticasone Propionate (Flonase 0.05% Nasal) 1 spray DAILY NASAL Last administered on 04/29/16 09:10; Admin Dose 1 SPRAY; Start 04/29/16 at 09:00 Latanoprost (Xalatan) 1 drop QHS BOTH EYES Last administered on 04/29/16 20:57 ; Admin Dose 1 DROP; Start 04/28/16 at 21:00 Atorvastatin Calcium (Lipitor) 20 mg DAILY@21 PO Last administered on 20:38; Admin Dose 20 MG; Start 04/28/16 at 21:00 Salmeterol Xinafoate/ Fluticasone (Advair 250/50 Diskus) 1 inh BID INH Last administered on 04/29/16 20:43; Admin Dose 1 INH; Start 04/28/16 at 21:00 Diltiazem HCl (Cardizem) 30 mg Q6 PO Last administered on 04/29/16 17:57; Admin Dose 30 MG; Start 04/29/16 at 00:00 Docusate Sodium (Colace) 100 mg BID PO Last administered on 04/29/16 20:38; Admin Dose 100 MG; Start 04/29/16 at 13:30 Procedures Procedures EKG: osh ekg images reviewed afib, rate controlled cxr images reveiwed in chart, OLIVIA Palafox Apr 29, 2016 21:57
[2016-04-30] VITALS: BP 120/75; RESP 20
[2016-04-30] MEDS: ZOLPIDEM 5 MG TAB PO PRN ×2 (00:36→23:27)
[2016-04-30] MEDS: HYDROmorphONE 2 MG/ML SYG IV PRN ×2 (00:41→07:41)
[2016-04-30] MEDS: ALBUTEROL HFA 8 GM INHALER INH SCH ×6 (00:42→20:47)
[2016-04-30] MEDS: LACTATED RINGER'S 1,000 ML IV SCH (05:43)
[2016-04-30] MEDS: traMADol 50 MG TAB PO SCH ×4 (06:04→23:27)
[2016-04-30 06:45] VITALS: BP 138/82; PULSE 101; RESP 17
[2016-04-30 07:00] VITALS: BP 111/68; RESP 19
[2016-04-30 08:21] LABS: BASOPHILS % 0.3 % (0.0-2.0); EOSINOPHILS # 0.1 10^3/ul (0.0-0.5); EOSINOPHILS % 1.4 % (0.0-7.0); HEMATOCRIT 29.5 % (42.0-52.0); HEMOGLOBIN 9.8 g/dl (14.0-18.0); MEAN CORPUSCULAR HEMOGLOBIN 26.7 pg (29.0-33.0); MEAN CORPUSCULAR HGB CONC 33.2 g/dl (32.0-37.0); MEAN CORPUSCULAR VOLUME 80.4 fl (82.0-101.0); MEAN PLATELET VOLUME 9.9 fl (7.4-10.4); MONOCYTE # 0.9 10^3/ul (0.3-0.9); MONOCYTES % 10.1 % (0.0-11.0); NEUTROPHIL # 6.8 10^3/ul (1.6-7.5); NEUTROPHILS % 77.2 % (39.0-77.0); PLATELET COUNT 184 10^3/UL (140-440); RED BLOOD COUNT 3.67 10^6/ul (4.70-6.10); RED CELL DISTRIBUTION WIDTH 17.4 % (11.5-14.5); UNCORRECTED WBC 8.9 10^3/ul (4.8-10.8); WHITE BLOOD COUNT 8.9 10^3/ul (4.8-10.8)
[2016-04-30] MEDS: D5W-0.45 NACL + KCL 20 MEQ 1,000 ML IV SCH ×4 (08:22→21:07)
[2016-04-30 08:28] LABS: POTASSIUM 4.1 mmol/L (3.5-5.1)
[2016-04-30 08:30] LABS: CREATININE 0.61 mg/dl (0.61-1.24)
[2016-04-30 08:31] LABS: CALCIUM 9.1 mg/dl (8.4-10.2)
[2016-04-30 08:39] LABS: ADD UMIC YES; URINE BILIRUBIN (Dip) NEGATIVE (NEGATIVE); URINE BLOOD (Dip) 3+ (NEGATIVE); URINE COLOR LT. YELLOW (YELLOW); URINE GLUCOSE (Dip) NEGATIVE (NEGATIVE); URINE KETONES (Dip) NEGATIVE (NEGATIVE); URINE LEUKOCYTE ESTERASE (Dip) NEGATIVE (NEGATIVE); URINE NITRITE (Dip) NEGATIVE (NEGATIVE); URINE TOTAL PROTEIN (Dip) NEGATIVE (NEGATIVE); URINE UROBILINOGEN (Dip) 1.0 E.U./dL (0.1-1.0)
[2016-04-30 08:46] LABS: CONDITION 1; LH ANALYZER COMMENTS 1
--- NOTE | 2016-04-30 08:47 | CONS ---
Date/Time of Note Date/Time of Note DATE: 04/30/16 TIME: 08:43 Assessment/Plan Assessment/Plan Chief Complaint/Hosp Course 1. he is 2 days post op a R TKR . 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 He is doing well . continue current medication and PT . 2. A fib , controlled rate , will restart Xarelto today . Cardiology consultation . His ventricular rate is controlled . 3, asthma , controlled 4. sleep apnea , he is using his CPAP machine Problems: Consultation Date/Type/Reason Admit Date/Time Apr 28, 2016 at 05:17 Type of Consultation: Medicine 24 HR Interval Summary Free Text/Dictation He is 2 days post op a R TKR . Pain is under control . Constitutional: improved, no complaints Exam/Review of Systems Vital Signs Vitals Vital Signs Date Time Temp Pulse Resp B/P Pulse Ox O2 Delivery O2 Flow Rate FiO2 04/30/16 07:00 98.6 90 19 111/68 96 04/30/16 06:45 Room Air 04/28/16 12:46 3.0 Intake and Output 04/29/16 04/29/16 04/30/16 15:00 23:00 07:00 Intake Total 750 ml Output Total 550 ml Balance 200 ml Exam Constitutional: alert, oriented, well developed Psych: nl mood/affect, no complaints Respiratory: clear to auscultation, normal air movement Cardiovascular: irregular rhythm Gastrointestinal: soft Musculoskeletal: nl extremities to inspection Results Result Diagram: 04/29/1615 04/29/16 0615 Medications Medications Current Medications Lactated Ringer's (Lr) 1,000 ml @ 25 mls/hr Q24H IV ; Start 04/28/16 at 05:43 Tramadol HCl (Ultram) 50 mg Q6 PO Last administered on 04/30/16t 06:04; Admin Dose 50 MG; Start 04/28/16 at 18:00 Oxycodone/ Acetaminophen (Percocet (5/ 325)) 1 tab Q3H PRN PO PAIN LEVEL 1-5; Start 04/28/16 at 06:30 Oxycodone/ Acetaminophen (Percocet (5/ 325)) 2 tab Q3H PRN PO PAIN LEVEL 6-10; Start 04/28/16 at 06:30 Hydromorphone HCl (Dilaudid) 1 mg Q3H PRN IV PAIN LEVEL 1-3 Last administered on 04/28/16 15:12; Admin Dose 1 MG; Start 04/28/16 at 06:30 Hydromorphone HCl (Dilaudid) 1.5 mg Q3H PRN IV PAIN LEVEL 4-6 Last administered on 04/28/16 18:30; Admin Dose 1.5 MG; Start 04/28/16 at 06:30 Hydromorphone HCl (Dilaudid) 2 mg Q3H PRN IV PAIN LEVEL 7-10 Last administered on 04/30/16 07:41; Admin Dose 2 MG; Start 04/28/16 at 06:30 Naloxone HCl (Narcan) 0.2 mg Q2M PRN IV RESPIRATORY RATE LESS THAN 8; Start at 06:30 Senna/Docusate Sodium (Senokot-S) 1 tab BID PO Last administered on 04/29/16 20:39; Admin Dose 1 TAB; Start 04/28/16 at 21:00 Magnesium Hydroxide (Milk Of Mag) 30 ml BID PRN PO CONSTIPATION Last administered on 04/29/16 09:16; Admin Dose 30 ML; Start 04/28/16 at 06:30 Magnesium Hydroxide (Milk Of Mag) 30 ml HS PO ; Start 04/30/16 at 21:00 Ondansetron HCl (Zofran Inj) 4 mg Q4H PRN IV NAUSEA; Start 04/28/16 at 06:30 Acetaminophen (Tylenol Tab) 1,000 mg Q4H PRN PO TEMP GREATER THAN 100.4 (ORAL) ; Start 04/28/16 at 06:30 Celecoxib (Celebrex) 200 mg BID PO ; Start 04/28/16 at 21:00 Famotidine (Pepcid) 20 mg BID PO Last administered on 04/29/16 20:39; Admin Dose 20 MG; Start 04/28/16 at 21:00 Metoclopramide HCl 10 mg 10 mg BID PO Last administered on 04/29/16 20:39; Admin Dose 10 MG; Start 04/28/16 at 21:00 Potassium Chloride/Dextrose/ Sod Cl (D5-1/2ns + KCl 20 Meq) 1,000 ml @ 100 mls/ hr Q10H IV Last administered on 04/29/16 21:00; Admin Dose 100 MLS/HR; Start 04/28/16 at 06:22 Albuterol (Ventolin Hfa) 2 puff Q4 INH Last administered on 04/29/16 04:37; Admin Dose 2 PUFF; Start 04/28/16 at 21:00 Finasteride (Proscar) 5 mg DAILY PO Last administered on 04/29/16 11:27; Admin Dose 5 MG; Start 04/29/16 at 09:00 Levothyroxine Sodium (Synthroid) 75 mcg DAILY PO Last administered on 09:13; Admin Dose 75 MCG; Start 04/29/16 at 09:00 Montelukast Sodium (Singulair) 10 mg QHS PO Last administered on 04/29/16 21: 09; Admin Dose 10 MG; Start 04/28/16 at 21:00 Tamsulosin HCl (Flomax) 0.4 mg BID PO Last administered on 04/29/16 20:38; Admin Dose 0.4 MG; Start 04/28/16 at 21:00 Tiotropium [place] (Spiriva) 1 inh DAILY INH Last administered on 04/29/16 09: 10; Admin Dose 1 INH; Start 04/29/16 at 09:00 Zolpidem Tartrate (Ambien) 5 mg HS PRN PO INSOMNIA Last administered on 00:36; Admin Dose 5 MG; Start 04/28/16 at 19:30 Loratadine (Claritin) 10 mg DAILY PO Last administered on 04/29/16 09:11; Admin Dose 10 MG; Start 04/29/16 at 09:00 Fluticasone Propionate (Flonase 0.05% Nasal) 1 spray DAILY NASAL Last administered on 04/29/16 09:10; Admin Dose 1 SPRAY; Start 04/29/16 at 09:00 Latanoprost (Xalatan) 1 drop QHS BOTH EYES Last administered on 04/29/16 20:57 ; Admin Dose 1 DROP; Start 04/28/16 at 21:00 Atorvastatin Calcium (Lipitor) 20 mg DAILY@21 PO Last administered on 20:38; Admin Dose 20 MG; Start 04/28/16 at 21:00 Salmeterol Xinafoate/ Fluticasone (Advair 250/50 Diskus) 1 inh BID INH Last administered on 04/29/16 20:43; Admin Dose 1 INH; Start 04/28/16 at 21:00 Docusate Sodium (Colace) 100 mg BID PO Last administered on 04/29/16 20:38; Admin Dose 100 MG; Start 04/29/16 at 13:30 Diltiazem HCl (Cardizem Cd) 120 mg DAILY PO ; Start 04/30/16 at 09:00 PRACHI DAY MD Apr 30, 2016 08:47
[2016-04-30] MEDS: CELECOXIB 200 MG CAP PO SCH (09:00)
[2016-04-30] MEDS: FLUTICASONE 0.05% 16 GM NAS SPRAY NASAL SCH (09:24)
[2016-04-30] MEDS: SALMETEROL/FLUTICASONE 250/50 INHA INH SCH ×2 (09:24→20:46)
[2016-04-30] MEDS: TAMSULOSIN (SR) 0.4 MG CAP PO SCH ×2 (09:26→20:47)
[2016-04-30] MEDS: SENNA/DOCUSATE NA (8.6MG/50MG) TAB PO SCH ×2 (09:26→20:47)
[2016-04-30] MEDS: DOCUSATE SODIUM 100 MG CAP PO SCH ×2 (09:26→20:47)
[2016-04-30] MEDS: FAMOTIDINE 20 MG TAB PO SCH ×2 (09:26→20:47)
[2016-04-30] MEDS: LEVOTHYROXINE 75 MCG TAB PO SCH (09:27)
[2016-04-30] MEDS: LORATADINE 10 MG TAB PO SCH (09:27)
[2016-04-30] MEDS: DILTIAZEM (CD) 120 MG CAP PO SCH (09:28)
[2016-04-30] MEDS: FINASTERIDE 5 MG TAB PO SCH (09:28)
[2016-04-30] MEDS: METOCLOPRAMIDE 10 MG TAB PO SCH ×2 (09:28→20:47)
[2016-04-30] MEDS: OXYCODONE/ACETAMINOPHEN (5/325) TAB PO PRN ×3 (09:37→22:34)
[2016-04-30] MEDS: TIOTROPIUM 18 MCG CAPSULE INHA DEV INH SCH (10:49)
--- NOTE | 2016-04-30 11:39 | PN ---
DATE: 04/30/2016 The patient comfortable on postop day 2. No calf pain. Out of bed. PLAN: 1. Mobilize. 2. Per Dr. Trujillo, Dr. Mariee. Dictated By: DEON BACON/NAGI Conf#: [id number] DID#: [id number]
[2016-04-30] MEDS: RIVAROXABAN 20 MG TABLET PO SCH (18:05)
[2016-04-30 19:07] VITALS: BP 111/75; RESP 18
[2016-04-30] MEDS: LATANOPROST 0.005% 2.5 ML OPH BOTH EYES SCH (20:46)
[2016-04-30] MEDS: MAGNESIUM HYDROXIDE 30ML CUP PO SCH (20:47)
[2016-04-30] MEDS: ATORVASTATIN 20 MG TAB PO SCH (20:47)
[2016-04-30] MEDS: MONTELUKAST 10 MG TAB PO SCH ×2 (21:00→22:34)
--- NOTE | 2016-04-30 21:17 | CONS ---
Date/Time of Note Date/Time of Note DATE: 04/30/16 TIME: 17:39 Assessment/Plan Assessment/Plan Chief Complaint/Hosp Course 1. Afib- chronic - cont rate control, cont po dilt cd 120mg daily can increase as needed if tacy at rest or elevated hrs with activity - cont anticoag with xarelto for stroke prophy 2. s/p R TKA, c/b infection previously - cont abx - cont pain control per primary/ortho 3. ELIANA - cpap at night Problems: Consultation Date/Type/Reason Admit Date/Time Apr 28, 2016 at 05:17 Initial Consult Date 04/29/2016 Type of Consultation: Cardiology Reason for Consultation Afib Referring Provider: PRACHI DAY MD 24 HR Interval Summary Free Text/Dictation no acute events. denies palpitations, dizziness, cp. pt with r knee pain, improved with medications. tolerating po no n/v. Constitutional: no complaints ( dsbg ) Detailed Summary Eyes: no complaints ENT: no complaints Respiratory: no complaints Cardiovascular: no complaints Gastrointestinal: no complaints Musculoskeletal: bone/joint pain Exam/Review of Systems Vital Signs Vitals Vital Signs Date Time Temp Pulse Resp B/P Pulse Ox O2 Delivery O2 Flow Rate FiO2 04/30/16 07:00 98.6 90 19 111/68 96 04/30/16 06:45 Room Air 04/28/16 12:46 3.0 Intake and Output 04/29/16 04/29/16 04/30/16 15:00 23:00 07:00 Intake Total 750 ml Output Total 550 ml Balance 200 ml Exam Constitutional: alert, oriented Psych: no complaints Head: atraumatic, normocephalic Eyes: nl conjunctiva ENMT: mucosa pink and moist, nl nasal mucosa & septum Neck: non-tender, supple, No jvd Respiratory: clear to auscultation, normal air movement Cardiovascular: irregular rhythm ( m), nl pulses, systolic murmur, No S3 (010.0), No S4 Gastrointestinal: nl liver, spleen, soft Musculoskeletal: joint tenderness, other (r knee c/d/i) Extremities: normal pulses 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, nl mental status, nl speech Results Result Diagram: 04/30/1628 04/30/16 0728 Results 24 hrs Laboratory Tests Test 04/30/16 07:28 Anion Gap 13 Basophils # 0.0 Basophils % 0.3 Blood Morphology Comment Blood Urea Nitrogen 14 Calcium Level 9.1 Carbon Dioxide Level 27 Chloride Level 100 Creatinine 0.61 Eosinophils # 0.1 Eosinophils % 1.4 Glucose Level 99 Hematocrit 29.5 L Hemoglobin 9.8 L Lymphocytes # 1.0 Lymphocytes % 11.0 L Mean Corpuscular Hemoglobin 26.7 L Mean Corpuscular Hemoglobin Concent 33.2 Mean Corpuscular Volume 80.4 L Mean Platelet Volume 9.9 Monocytes # 0.9 Monocytes % 10.1 Neutrophils # 6.8 Neutrophils % 77.2 H Nucleated Red Blood Cells # 0.0 Nucleated Red Blood Cells % 0.0 Platelet Count 184 Potassium Level 4.1 Red Blood Count 3.67 L Red Cell Distribution Width 17.4 H Sodium Level 136 White Blood Count 8.9 Medications Medications Current Medications Lactated Ringer's (Lr) 1,000 ml @ 25 mls/hr Q24H IV ; Start 04/28/16 at 05:43 Tramadol HCl (Ultram) 50 mg Q6 PO Last administered on 04/30/16 13:34; Admin Dose 50 MG; Start 04/28/16 at 18:00 Oxycodone/ Acetaminophen (Percocet (5/ 325)) 1 tab Q3H PRN PO PAIN LEVEL 1-5; Start 04/28/16 at 06:30 Oxycodone/ Acetaminophen (Percocet (5/ 325)) 2 tab Q3H PRN PO PAIN LEVEL 6-10 Last administered on 04/30/16 13:37; Admin Dose 2 TAB; Start 04/28/16 at 06:30 Hydromorphone HCl (Dilaudid) 1 mg Q3H PRN IV PAIN LEVEL 1-3 Last administered on 04/28/16 15:12; Admin Dose 1 MG; Start 04/28/16 at 06:30 Hydromorphone HCl (Dilaudid) 1.5 mg Q3H PRN IV PAIN LEVEL 4-6 Last administered on 04/28/16 18:30; Admin Dose 1.5 MG; Start 04/28/16 at 06:30 Hydromorphone HCl (Dilaudid) 2 mg Q3H PRN IV PAIN LEVEL 7-10 Last administered on 04/30/16 07:41; Admin Dose 2 MG; Start 04/28/16 at 06:30 Naloxone HCl (Narcan) 0.2 mg Q2M PRN IV RESPIRATORY RATE LESS THAN 8; Start at 06:30 Senna/Docusate Sodium (Senokot-S) 1 tab BID PO Last administered on 04/30/16 09:26; Admin Dose 1 TAB; Start 04/28/16 at 21:00 Magnesium Hydroxide (Milk Of Mag) 30 ml BID PRN PO CONSTIPATION Last administered on 04/29/16 09:16; Admin Dose 30 ML; Start 04/28/16 at 06:30 Magnesium Hydroxide (Milk Of Mag) 30 ml HS PO ; Start 04/30/16 at 21:00 Ondansetron HCl (Zofran Inj) 4 mg Q4H PRN IV NAUSEA; Start 04/28/16 at 06:30 Acetaminophen (Tylenol Tab) 1,000 mg Q4H PRN PO TEMP GREATER THAN 100.4 (ORAL) ; Start 04/28/16 at 06:30 Famotidine (Pepcid) 20 mg BID PO Last administered on 04/30/16 09:26; Admin Dose 20 MG; Start 04/28/16 at 21:00 Metoclopramide HCl 10 mg 10 mg BID PO Last administered on 04/30/16 09:28; Admin Dose 10 MG; Start 04/28/16 at 21:00 Potassium Chloride/Dextrose/ Sod Cl (D5-1/2ns + KCl 20 Meq) 1,000 ml @ 100 mls/ hr Q10H IV Last administered on 04/29/16 21:00; Admin Dose 100 MLS/HR; Start 04/28/16 at 06:22 Albuterol (Ventolin Hfa) 2 puff Q4 INH Last administered on 04/29/16 04:37; Admin Dose 2 PUFF; Start 04/28/16 at 21:00 Finasteride (Proscar) 5 mg DAILY PO Last administered on 04/30/16 09:28; Admin Dose 5 MG; Start 04/29/16 at 09:00 Levothyroxine Sodium (Synthroid) 75 mcg DAILY PO Last administered on 09:27; Admin Dose 75 MCG; Start 04/29/16 at 09:00 Montelukast Sodium (Singulair) 10 mg QHS PO Last administered on 04/29/16 21: 09; Admin Dose 10 MG; Start 04/28/16 at 21:00 Tamsulosin HCl (Flomax) 0.4 mg BID PO Last administered on 04/30/16 09:26; Admin Dose 0.4 MG; Start 04/28/16 at 21:00 Tiotropium [place] (Spiriva) 1 inh DAILY INH Last administered on 04/30/16 10: 49; Admin Dose 1 INH; Start 04/29/16 at 09:00 Zolpidem Tartrate (Ambien) 5 mg HS PRN PO INSOMNIA Last administered on 00:36; Admin Dose 5 MG; Start 04/28/16 at 19:30 Loratadine (Claritin) 10 mg DAILY PO Last administered on 04/30/16 09:27; Admin Dose 10 MG; Start 04/29/16 at 09:00 Fluticasone Propionate (Flonase 0.05% Nasal) 1 spray DAILY NASAL Last administered on 04/30/16 09:24; Admin Dose 1 SPRAY; Start 04/29/16 at 09:00 Latanoprost (Xalatan) 1 drop QHS BOTH EYES Last administered on 04/29/16 20:57 ; Admin Dose 1 DROP; Start 04/28/16 at 21:00 Atorvastatin Calcium (Lipitor) 20 mg DAILY@21 PO Last administered on 20:38; Admin Dose 20 MG; Start 04/28/16 at 21:00 Salmeterol Xinafoate/ Fluticasone (Advair 250/50 Diskus) 1 inh BID INH Last administered on 04/30/16 09:24; Admin Dose 1 INH; Start 04/28/16 at 21:00 Docusate Sodium (Colace) 100 mg BID PO Last administered on 04/30/16 09:26; Admin Dose 100 MG; Start 04/29/16 at 13:30 Diltiazem HCl (Cardizem Cd) 120 mg DAILY PO Last administered on 04/30/16 09: 28; Admin Dose 120 MG; Start 04/30/16 at 09:00 Procedures Procedures knee xray report reviewed in emr OLIVIA POWELL Apr 30, 2016 17:51
[2016-05-01] MEDS: ALBUTEROL HFA 8 GM INHALER INH SCH ×6 (01:00→20:26)
[2016-05-01 05:12] LABS: BASOPHILS % 0.5 % (0.0-2.0); EOSINOPHILS # 0.2 10^3/ul (0.0-0.5); EOSINOPHILS % 2.5 % (0.0-7.0); HEMATOCRIT 27.2 % (42.0-52.0); HEMOGLOBIN 9.1 g/dl (14.0-18.0); LYMPHOCYTES % 16.6 % (15.0-51.0); MEAN CORPUSCULAR HEMOGLOBIN 26.7 pg (29.0-33.0); MEAN CORPUSCULAR HGB CONC 33.3 g/dl (32.0-37.0); MEAN CORPUSCULAR VOLUME 80.3 fl (82.0-101.0); MEAN PLATELET VOLUME 9.5 fl (7.4-10.4); MONOCYTE # 0.8 10^3/ul (0.3-0.9); MONOCYTES % 13.3 % (0.0-11.0); NEUTROPHILS % 67.1 % (39.0-77.0); PLATELET COUNT 167 10^3/UL (140-440); RED BLOOD COUNT 3.39 10^6/ul (4.70-6.10); RED CELL DISTRIBUTION WIDTH 17.1 % (11.5-14.5)
[2016-05-01 05:17] LABS: CONDITION 1; LH ANALYZER COMMENTS 1
[2016-05-01 05:39] LABS: POTASSIUM 4.1 mmol/L (3.5-5.1)
[2016-05-01 05:41] LABS: CREATININE 0.62 mg/dl (0.61-1.24)
[2016-05-01] MEDS: LACTATED RINGER'S 1,000 ML IV SCH (05:43)
[2016-05-01] MEDS: traMADol 50 MG TAB PO SCH ×3 (06:07→18:28)
[2016-05-01 07:32] VITALS: BP 124/90; RESP 18
[2016-05-01] MEDS: TIOTROPIUM 18 MCG CAPSULE INHA DEV INH SCH (08:35)
[2016-05-01] MEDS: SALMETEROL/FLUTICASONE 250/50 INHA INH SCH ×2 (08:35→20:28)
[2016-05-01] MEDS: DILTIAZEM (CD) 120 MG CAP PO SCH (08:36)
[2016-05-01] MEDS: SENNA/DOCUSATE NA (8.6MG/50MG) TAB PO SCH ×2 (08:36→20:29)
[2016-05-01] MEDS: LEVOTHYROXINE 75 MCG TAB PO SCH (08:36)
[2016-05-01] MEDS: LORATADINE 10 MG TAB PO SCH (08:37)
[2016-05-01] MEDS: TAMSULOSIN (SR) 0.4 MG CAP PO SCH ×2 (08:37→20:29)
[2016-05-01] MEDS: FAMOTIDINE 20 MG TAB PO SCH ×2 (08:37→20:29)
[2016-05-01] MEDS: FINASTERIDE 5 MG TAB PO SCH (08:37)
[2016-05-01] MEDS: METOCLOPRAMIDE 10 MG TAB PO SCH ×2 (08:37→20:29)
[2016-05-01] MEDS: DOCUSATE SODIUM 100 MG CAP PO SCH ×2 (08:37→20:27)
[2016-05-01] MEDS: FLUTICASONE 0.05% 16 GM NAS SPRAY NASAL SCH (08:38)
[2016-05-01] MEDS: OXYCODONE/ACETAMINOPHEN (5/325) TAB PO PRN ×5 (08:43→23:25)
--- NOTE | 2016-05-01 10:11 | PN ---
DATE: 05/01/2016 Afebrile. Intraoperative cultures, no growth at 48 hours. Off antibiotics. Decreasing pain. No calf tenderness. Out of bed. PLAN: 1. Continue mobilization. 2. Per Dr. Trujillo. Dictated By: DEON BACON/NAGI Conf#: [id number] DID#: [id number]
--- NOTE | 2016-05-01 13:44 | CONS ---
Date/Time of Note Date/Time of Note DATE: 05/01/16 TIME: 13:39 Assessment/Plan Assessment/Plan Chief Complaint/Hosp Course 1. he is 3 days post op a R TKR . 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 He is doing well . continue current medication and PT . 2. A fib , controlled rate , will restart Xarelto today . Cardiology consultation . His ventricular rate is controlled . 3, asthma , controlled 4. sleep apnea , he is using his CPAP machine Problems: Consultation Date/Type/Reason Admit Date/Time Apr 28, 2016 at 05:17 Type of Consultation: medicine Referring Provider: PRACHI DAY MD 24 HR Interval Summary Free Text/Dictation He is 3 days post op a R TKR . He is overall feeling better . Constitutional: improved Exam/Review of Systems Vital Signs Vitals Vital Signs Date Time Temp Pulse Resp B/P Pulse Ox O2 Delivery O2 Flow Rate FiO2 05/01/16 07:32 98.2 103 18 124/90 97 04/30/16 06:45 Room Air 04/28/16 12:46 3.0 Intake and Output 04/30/16 04/30/16 05/01/16 14:59 22:59 06:59 Intake Total 700 ml 480 ml Output Total 900 ml 700 ml Balance -200 ml -220 ml Exam Constitutional: alert, oriented, well developed Psych: nl mood/affect, no complaints Respiratory: clear to auscultation, normal air movement Cardiovascular: irregular rhythm Gastrointestinal: soft Musculoskeletal: nl extremities to inspection Results Result Diagram: 05/01/16 0439 05/01/16 0439 Results 24 hrs Laboratory Tests Test 05/01/16 04:39 Anion Gap 11 Basophils # 0.0 Basophils % 0.5 Blood Morphology Comment Blood Urea Nitrogen 13 Calcium Level 9.0 Carbon Dioxide Level 29 Chloride Level 101 Creatinine 0.62 Eosinophils # 0.2 Eosinophils % 2.5 Glucose Level 106 Hematocrit 27.2 L Hemoglobin 9.1 L Lymphocytes # 1.0 Lymphocytes % 16.6 Mean Corpuscular Hemoglobin 26.7 L Mean Corpuscular Hemoglobin Concent 33.3 Mean Corpuscular Volume 80.3 L Mean Platelet Volume 9.5 Monocytes # 0.8 Monocytes % 13.3 H Neutrophils # 4.0 Neutrophils % 67.1 Nucleated Red Blood Cells # 0.0 Nucleated Red Blood Cells % 0.0 Platelet Count 167 Potassium Level 4.1 Red Blood Count 3.39 L Red Cell Distribution Width 17.1 H Sodium Level 137 White Blood Count 6.0 # Medications Medications Current Medications Lactated Ringer's (Lr) 1,000 ml @ 25 mls/hr Q24H IV ; Start 04/28/16 at 05:43 Tramadol HCl (Ultram) 50 mg Q6 PO Last administered on 05/01/16 11:55; Admin Dose 50 MG; Start 04/28/16 at 18:00 Oxycodone/ Acetaminophen (Percocet (5/ 325)) 1 tab Q3H PRN PO PAIN LEVEL 1-5; Start 04/28/16 at 06:30 Oxycodone/ Acetaminophen (Percocet (5/ 325)) 2 tab Q3H PRN PO PAIN LEVEL 6-10 Last administered on 05/01/16 08:43; Admin Dose 2 TAB; Start 04/28/16 at 06:30 Hydromorphone HCl (Dilaudid) 1 mg Q3H PRN IV PAIN LEVEL 1-3 Last administered on 04/28/16 15:12; Admin Dose 1 MG; Start 04/28/16 at 06:30 Hydromorphone HCl (Dilaudid) 1.5 mg Q3H PRN IV PAIN LEVEL 4-6 Last administered on 04/28/16 18:30; Admin Dose 1.5 MG; Start 04/28/16 at 06:30 Hydromorphone HCl (Dilaudid) 2 mg Q3H PRN IV PAIN LEVEL 7-10 Last administered on 04/30/16 07:41; Admin Dose 2 MG; Start 04/28/16 at 06:30 Naloxone HCl (Narcan) 0.2 mg Q2M PRN IV RESPIRATORY RATE LESS THAN 8; Start at 06:30 Senna/Docusate Sodium (Senokot-S) 1 tab BID PO Last administered on 05/01/16 08:36; Admin Dose 1 TAB; Start 04/28/16 at 21:00 Magnesium Hydroxide (Milk Of Mag) 30 ml BID PRN PO CONSTIPATION Last administered on 04/29/16 09:16; Admin Dose 30 ML; Start 04/28/16 at 06:30 Magnesium Hydroxide (Milk Of Mag) 30 ml HS PO Last administered on 04/30/16 20 :47; Admin Dose 30 ML; Start 04/30/16 at 21:00 Ondansetron HCl (Zofran Inj) 4 mg Q4H PRN IV NAUSEA; Start 04/28/16 at 06:30 Acetaminophen (Tylenol Tab) 1,000 mg Q4H PRN PO TEMP GREATER THAN 100.4 (ORAL) ; Start 04/28/16 at 06:30 Famotidine (Pepcid) 20 mg BID PO Last administered on 05/01/16 08:37; Admin Dose 20 MG; Start 04/28/16 at 21:00 Metoclopramide HCl 10 mg 10 mg BID PO Last administered on 05/01/16 08:37; Admin Dose 10 MG; Start 04/28/16 at 21:00 Potassium Chloride/Dextrose/ Sod Cl (D5-1/2ns + KCl 20 Meq) 1,000 ml @ 100 mls/ hr Q10H IV Last administered on 04/30/16 20:47; Admin Dose 100 MLS/HR; Start 04/28/16 at 06:22 Albuterol (Ventolin Hfa) 2 puff Q4 INH Last administered on 04/29/16 04:37; Admin Dose 2 PUFF; Start 04/28/16 at 21:00 Finasteride (Proscar) 5 mg DAILY PO Last administered on 05/01/16 08:37; Admin Dose 5 MG; Start 04/29/16 at 09:00 Levothyroxine Sodium (Synthroid) 75 mcg DAILY PO Last administered on 08:36; Admin Dose 75 MCG; Start 04/29/16 at 09:00 Montelukast Sodium (Singulair) 10 mg QHS PO Last administered on 04/30/16 22: 34; Admin Dose 10 MG; Start 04/28/16 at 21:00 Tamsulosin HCl (Flomax) 0.4 mg BID PO Last administered on 05/01/16 08:37; Admin Dose 0.4 MG; Start 04/28/16 at 21:00 Tiotropium [place] (Spiriva) 1 inh DAILY INH Last administered on 05/01/16 08: 35; Admin Dose 1 INH; Start 04/29/16 at 09:00 Zolpidem Tartrate (Ambien) 5 mg HS PRN PO INSOMNIA Last administered on 23:27; Admin Dose 5 MG; Start 04/28/16 at 19:30 Loratadine (Claritin) 10 mg DAILY PO Last administered on 05/01/16 08:37; Admin Dose 10 MG; Start 04/29/16 at 09:00 Fluticasone Propionate (Flonase 0.05% Nasal) 1 spray DAILY NASAL Last administered on 05/01/16 08:38; Admin Dose 1 SPRAY; Start 04/29/16 at 09:00 Latanoprost (Xalatan) 1 drop QHS BOTH EYES Last administered on 04/30/16 20:46 ; Admin Dose 1 DROP; Start 04/28/16 at 21:00 Atorvastatin Calcium (Lipitor) 20 mg DAILY@21 PO Last administered on 20:47; Admin Dose 20 MG; Start 04/28/16 at 21:00 Salmeterol Xinafoate/ Fluticasone (Advair 250/50 Diskus) 1 inh BID INH Last administered on 05/01/16 08:35; Admin Dose 1 INH; Start 04/28/16 at 21:00 Docusate Sodium (Colace) 100 mg BID PO Last administered on 05/01/16 08:37; Admin Dose 100 MG; Start 04/29/16 at 13:30 Diltiazem HCl (Cardizem Cd) 120 mg DAILY PO Last administered on 05/01/16 08: 36; Admin Dose 120 MG; Start 04/30/16 at 09:00 PRACHI DAY MD May 01, 2016 13:44
[2016-05-01] MEDS ORDERED: ALPRAZOLAM 0.25 MG TAB PO PRN (14:00)
[2016-05-01] MEDS: RIVAROXABAN 20 MG TABLET PO SCH (17:47)
[2016-05-01 19:08] VITALS: BP 125/67; RESP 18
[2016-05-01] MEDS: ATORVASTATIN 20 MG TAB PO SCH (20:27)
[2016-05-01] MEDS: MAGNESIUM HYDROXIDE 30ML CUP PO SCH (20:27)
[2016-05-01] MEDS: LATANOPROST 0.005% 2.5 ML OPH BOTH EYES SCH (20:29)
[2016-05-01] MEDS: MONTELUKAST 10 MG TAB PO SCH (20:29)
--- NOTE | 2016-05-01 22:17 | CONS ---
Date/Time of Note Date/Time of Note DATE: 05/01/16 TIME: 22:15 Assessment/Plan Assessment/Plan Chief Complaint/Hosp Course 1. Afib- chronic - cont rate control, cont po dilt cd 120mg daily titrate as needed - cont anticoag with xarelto for stroke prophy 2. s/p R TKA, c/b infection previously - cont abx - cont pain control per primary/ortho 3. ELIANA - cpap at night Problems: Consultation Date/Type/Reason Admit Date/Time Apr 28, 2016 at 05:17 Initial Consult Date 04/29/2016 Type of Consultation: Cardiology Referring Provider: PRACHI DAY MD 24 HR Interval Summary Free Text/Dictation no acute events. pt reports con r knee pain with rest/activity. taking pain meds with some relief. no cp/sob rest or with PT. no palpitations, dizziness. Constitutional: no complaints Detailed Summary Cardiovascular: no complaints Gastrointestinal: no complaints Musculoskeletal: bone/joint pain Exam/Review of Systems Vital Signs Vitals Vital Signs Date Time Temp Pulse Resp B/P Pulse Ox O2 Delivery O2 Flow Rate FiO2 05/01/16 19:08 98.1 90 18 125/67 95 04/30/16 06:45 Room Air 04/28/16 12:46 3.0 Intake and Output 04/30/16 04/30/16 05/01/16 15:00 23:00 07:00 Intake Total 700 ml 480 ml Output Total 900 ml 700 ml Balance -200 ml -220 ml Exam Constitutional: alert, oriented Psych: no complaints Head: atraumatic, normocephalic Eyes: nl conjunctiva ENMT: mucosa pink and moist, nl nasal mucosa & septum Neck: non-tender, supple, No jvd Respiratory: clear to auscultation, normal air movement Cardiovascular: irregular rhythm ( m), nl pulses, systolic murmur, No S3 (010.0), No S4 Gastrointestinal: nl liver, spleen, soft Musculoskeletal: joint tenderness, other (r knee c/d/i) Extremities: normal pulses Neurological: [employer] II-XII intact, nl mental status, nl speech Results Result Diagram: 05/01/16 0439 05/01/16 0439 Results 24 hrs Laboratory Tests Test 05/01/16 04:39 Anion Gap 11 Basophils # 0.0 Basophils % 0.5 Blood Morphology Comment Blood Urea Nitrogen 13 Calcium Level 9.0 Carbon Dioxide Level 29 Chloride Level 101 Creatinine 0.62 Eosinophils # 0.2 Eosinophils % 2.5 Glucose Level 106 Hematocrit 27.2 L Hemoglobin 9.1 L Lymphocytes # 1.0 Lymphocytes % 16.6 Mean Corpuscular Hemoglobin 26.7 L Mean Corpuscular Hemoglobin Concent 33.3 Mean Corpuscular Volume 80.3 L Mean Platelet Volume 9.5 Monocytes # 0.8 Monocytes % 13.3 H Neutrophils # 4.0 Neutrophils % 67.1 Nucleated Red Blood Cells # 0.0 Nucleated Red Blood Cells % 0.0 Platelet Count 167 Potassium Level 4.1 Red Blood Count 3.39 L Red Cell Distribution Width 17.1 H Sodium Level 137 White Blood Count 6.0 # Medications Medications Current Medications Tramadol HCl (Ultram) 50 mg Q6 PO Last administered on 05/01/16 18:28; Admin Dose 50 MG; Start 04/28/16 at 18:00 Oxycodone/ Acetaminophen (Percocet (5/ 325)) 1 tab Q3H PRN PO PAIN LEVEL 1-5; Start 04/28/16 at 06:30 Oxycodone/ Acetaminophen (Percocet (5/ 325)) 2 tab Q3H PRN PO PAIN LEVEL 6-10 Last administered on 05/01/16 20:28; Admin Dose 2 TAB; Start 04/28/16 at 06:30 Hydromorphone HCl (Dilaudid) 1 mg Q3H PRN IV PAIN LEVEL 1-3 Last administered on 04/28/16 15:12; Admin Dose 1 MG; Start 04/28/16 at 06:30 Hydromorphone HCl (Dilaudid) 1.5 mg Q3H PRN IV PAIN LEVEL 4-6 Last administered on 04/28/16 18:30; Admin Dose 1.5 MG; Start 04/28/16 at 06:30 Hydromorphone HCl (Dilaudid) 2 mg Q3H PRN IV PAIN LEVEL 7-10 Last administered on 04/30/16 07:41; Admin Dose 2 MG; Start 04/28/16 at 06:30 Naloxone HCl (Narcan) 0.2 mg Q2M PRN IV RESPIRATORY RATE LESS THAN 8; Start at 06:30 Senna/Docusate Sodium (Senokot-S) 1 tab BID PO Last administered on 05/01/16 20:29; Admin Dose 1 TAB; Start 04/28/16 at 21:00 Magnesium Hydroxide (Milk Of Mag) 30 ml BID PRN PO CONSTIPATION Last administered on 04/29/16 09:16; Admin Dose 30 ML; Start 04/28/16 at 06:30 Magnesium Hydroxide (Milk Of Mag) 30 ml HS PO Last administered on 05/01/16 20 :27; Admin Dose 30 ML; Start 04/30/16 at 21:00 Ondansetron HCl (Zofran Inj) 4 mg Q4H PRN IV NAUSEA; Start 04/28/16 at 06:30 Acetaminophen (Tylenol Tab) 1,000 mg Q4H PRN PO TEMP GREATER THAN 100.4 (ORAL) ; Start 04/28/16 at 06:30 Famotidine (Pepcid) 20 mg BID PO Last administered on 05/01/16 20:29; Admin Dose 20 MG; Start 04/28/16 at 21:00 Metoclopramide HCl (Reglan) 10 mg BID PO Last administered on 05/01/16 20:29; Admin Dose 10 MG; Start 04/28/16 at 21:00 Albuterol (Ventolin Hfa) 2 puff Q4 INH Last administered on 04/29/16 04:37; Admin Dose 2 PUFF; Start 04/28/16 at 21:00 Finasteride (Proscar) 5 mg DAILY PO Last administered on 05/01/16 08:37; Admin Dose 5 MG; Start 04/29/16 at 09:00 Levothyroxine Sodium (Synthroid) 75 mcg DAILY PO Last administered on 08:36; Admin Dose 75 MCG; Start 04/29/16 at 09:00 Montelukast Sodium (Singulair) 10 mg QHS PO Last administered on 05/01/16 20: 29; Admin Dose 10 MG; Start 04/28/16 at 21:00 Tamsulosin HCl (Flomax) 0.4 mg BID PO Last administered on 05/01/16 20:29; Admin Dose 0.4 MG; Start 04/28/16 at 21:00 Tiotropium [place] (Spiriva) 1 inh DAILY INH Last administered on 05/01/16 08: 35; Admin Dose 1 INH; Start 04/29/16 at 09:00 Zolpidem Tartrate (Ambien) 5 mg HS PRN PO INSOMNIA Last administered on 23:27; Admin Dose 5 MG; Start 04/28/16 at 19:30 Loratadine (Claritin) 10 mg DAILY PO Last administered on 05/01/16 08:37; Admin Dose 10 MG; Start 04/29/16 at 09:00 Fluticasone Propionate (Flonase 0.05% Nasal) 1 spray DAILY NASAL Last administered on 05/01/16 08:38; Admin Dose 1 SPRAY; Start 04/29/16 at 09:00 Latanoprost (Xalatan) 1 drop QHS BOTH EYES Last administered on 05/01/16 20:29 ; Admin Dose 1 DROP; Start 04/28/16 at 21:00 Atorvastatin Calcium (Lipitor) 20 mg DAILY@21 PO Last administered on 20:27; Admin Dose 20 MG; Start 04/28/16 at 21:00 Salmeterol Xinafoate/ Fluticasone (Advair 250/50 Diskus) 1 inh BID INH Last administered on 05/01/16 20:28; Admin Dose 1 INH; Start 04/28/16 at 21:00 Docusate Sodium (Colace) 100 mg BID PO Last administered on 05/01/16 20:27; Admin Dose 100 MG; Start 04/29/16 at 13:30 Diltiazem HCl (Cardizem Cd) 120 mg DAILY PO Last administered on 05/01/16 08: 36; Admin Dose 120 MG; Start 04/30/16 at 09:00 OLIVIA POWELL May 01, 2016 22:17
[2016-05-01] MEDS: ZOLPIDEM 5 MG TAB PO PRN (23:22)
[2016-05-02] MEDS: ALBUTEROL HFA 8 GM INHALER INH SCH ×6 (01:00→20:24)
[2016-05-02] MEDS: traMADol 50 MG TAB PO SCH ×5 (06:12→23:49)
[2016-05-02 07:24] VITALS: BP 133/84; RESP 20
[2016-05-02 07:35] LABS: BASOPHILS % 0.5 % (0.0-2.0); EOSINOPHILS # 0.2 10^3/ul (0.0-0.5); EOSINOPHILS % 4.2 % (0.0-7.0); HEMATOCRIT 28.8 % (42.0-52.0); HEMOGLOBIN 9.5 g/dl (14.0-18.0); LYMPHOCYTES % 20.8 % (15.0-51.0); MEAN CORPUSCULAR HEMOGLOBIN 26.6 pg (29.0-33.0); MEAN CORPUSCULAR VOLUME 80.7 fl (82.0-101.0); MEAN PLATELET VOLUME 9.5 fl (7.4-10.4); MONOCYTE # 0.7 10^3/ul (0.3-0.9); MONOCYTES % 14.6 % (0.0-11.0); NEUTROPHIL # 2.9 10^3/ul (1.6-7.5); NEUTROPHILS % 59.9 % (39.0-77.0); PLATELET COUNT 184 10^3/UL (140-440); RED BLOOD COUNT 3.56 10^6/ul (4.70-6.10); UNCORRECTED WBC 4.9 10^3/ul (4.8-10.8); WHITE BLOOD COUNT 4.9 10^3/ul (4.8-10.8)
[2016-05-02 07:38] LABS: CONDITION 1; LH ANALYZER COMMENTS 1
[2016-05-02] MEDS: LEVOTHYROXINE 75 MCG TAB PO SCH (08:48)
[2016-05-02] MEDS: DOCUSATE SODIUM 100 MG CAP PO SCH ×2 (08:49→20:21)
[2016-05-02] MEDS: SENNA/DOCUSATE NA (8.6MG/50MG) TAB PO SCH ×2 (08:49→20:21)
[2016-05-02] MEDS: LORATADINE 10 MG TAB PO SCH (08:49)
[2016-05-02] MEDS: METOCLOPRAMIDE 10 MG TAB PO SCH ×2 (08:49→20:21)
[2016-05-02] MEDS: FINASTERIDE 5 MG TAB PO SCH (08:49)
[2016-05-02] MEDS: OXYCODONE/ACETAMINOPHEN (5/325) TAB PO PRN ×3 (08:49→20:53)
[2016-05-02] MEDS: TIOTROPIUM 18 MCG CAPSULE INHA DEV INH SCH (08:50)
[2016-05-02] MEDS: FAMOTIDINE 20 MG TAB PO SCH ×2 (08:50→20:21)
[2016-05-02] MEDS: TAMSULOSIN (SR) 0.4 MG CAP PO SCH ×2 (08:50→20:21)
[2016-05-02] MEDS: FLUTICASONE 0.05% 16 GM NAS SPRAY NASAL SCH (08:50)
[2016-05-02] MEDS: DILTIAZEM (CD) 120 MG CAP PO SCH (08:51)
[2016-05-02] MEDS: SALMETEROL/FLUTICASONE 250/50 INHA INH SCH ×2 (08:56→20:23)
--- NOTE | 2016-05-02 09:28 | CONS ---
Date/Time of Note Date/Time of Note DATE: 05/02/16 TIME: 09:24 Assessment/Plan Assessment/Plan Chief Complaint/Hosp Course 1. he is 4 days post op a R TKR . 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 He is doing well . continue current medication and PT . 2. A fib , controlled rate , he is on Xarelto for anticoagulation. 3, asthma , controlled 4. sleep apnea , he is using his CPAP machine 5. Discharge planning is in progress. Problems: Consultation Date/Type/Reason Admit Date/Time Apr 28, 2016 at 05:17 Type of Consultation: medicine Referring Provider: PRACHI DAY MD 24 HR Interval Summary Free Text/Dictation Patient is up walking with physical therapy. He is feeling better and having less pain however he is still in the rehabilitation stage from his surgery. Constitutional: improved Exam/Review of Systems Vital Signs Vitals Vital Signs Date Time Temp Pulse Resp B/P Pulse Ox O2 Delivery O2 Flow Rate FiO2 05/02/16 07:24 98.2 82 20 133/84 94 04/30/16 06:45 Room Air 04/28/16 12:46 3.0 Intake and Output 05/01/16 05/01/16 05/02/16 15:00 23:00 07:00 Intake Total 1025 ml 640 ml Output Total 800 ml 2000 ml Balance 225 ml -1360 ml Exam Constitutional: alert, oriented, well developed Psych: nl mood/affect, no complaints Respiratory: clear to auscultation, normal air movement Cardiovascular: irregular rhythm Gastrointestinal: soft Musculoskeletal: nl extremities to inspection Results Result Diagram: 05/02/16 0635 05/01/16 0439 Results 24 hrs Laboratory Tests Test 05/02/16 06:35 Basophils # 0.0 Basophils % 0.5 Blood Morphology Comment Eosinophils # 0.2 Eosinophils % 4.2 Hematocrit 28.8 L Hemoglobin 9.5 L Lymphocytes # 1.0 Lymphocytes % 20.8 Mean Corpuscular Hemoglobin 26.6 L Mean Corpuscular Hemoglobin Concent 33.0 Mean Corpuscular Volume 80.7 L Mean Platelet Volume 9.5 Monocytes # 0.7 Monocytes % 14.6 H Neutrophils # 2.9 Neutrophils % 59.9 Nucleated Red Blood Cells # 0.0 Nucleated Red Blood Cells % 0.0 Platelet Count 184 Red Blood Count 3.56 L Red Cell Distribution Width 17.0 H White Blood Count 4.9 Medications Medications Current Medications Tramadol HCl (Ultram) 50 mg Q6 PO Last administered on 05/02/16 06:12; Admin Dose 50 MG; Start 04/28/16 at 18:00 Oxycodone/ Acetaminophen (Percocet (5/ 325)) 1 tab Q3H PRN PO PAIN LEVEL 1-5; Start 04/28/16 at 06:30 Oxycodone/ Acetaminophen (Percocet (5/ 325)) 2 tab Q3H PRN PO PAIN LEVEL 6-10 Last administered on 05/02/16 08:49; Admin Dose 2 TAB; Start 04/28/16 at 06:30 Hydromorphone HCl (Dilaudid) 1 mg Q3H PRN IV PAIN LEVEL 1-3 Last administered on 04/28/16 15:12; Admin Dose 1 MG; Start 04/28/16 at 06:30 Hydromorphone HCl (Dilaudid) 1.5 mg Q3H PRN IV PAIN LEVEL 4-6 Last administered on 04/28/16 18:30; Admin Dose 1.5 MG; Start 04/28/16 at 06:30 Hydromorphone HCl (Dilaudid) 2 mg Q3H PRN IV PAIN LEVEL 7-10 Last administered on 04/30/16 07:41; Admin Dose 2 MG; Start 04/28/16 at 06:30 Naloxone HCl (Narcan) 0.2 mg Q2M PRN IV RESPIRATORY RATE LESS THAN 8; Start at 06:30 Senna/Docusate Sodium (Senokot-S) 1 tab BID PO Last administered on 05/02/16 08:49; Admin Dose 1 TAB; Start 04/28/16 at 21:00 Magnesium Hydroxide (Milk Of Mag) 30 ml BID PRN PO CONSTIPATION Last administered on 04/29/16 09:16; Admin Dose 30 ML; Start 04/28/16 at 06:30 Magnesium Hydroxide (Milk Of Mag) 30 ml HS PO Last administered on 05/01/16 20 :27; Admin Dose 30 ML; Start 04/30/16 at 21:00 Ondansetron HCl (Zofran Inj) 4 mg Q4H PRN IV NAUSEA; Start 04/28/16 at 06:30 Acetaminophen (Tylenol Tab) 1,000 mg Q4H PRN PO TEMP GREATER THAN 100.4 (ORAL) ; Start 04/28/16 at 06:30 Famotidine (Pepcid) 20 mg BID PO Last administered on 05/02/16 08:50; Admin Dose 20 MG; Start 04/28/16 at 21:00 Metoclopramide HCl (Reglan) 10 mg BID PO Last administered on 05/02/16 08:49; Admin Dose 10 MG; Start 04/28/16 at 21:00 Albuterol (Ventolin Hfa) 2 puff Q4 INH Last administered on 04/29/16 04:37; Admin Dose 2 PUFF; Start 04/28/16 at 21:00 Finasteride (Proscar) 5 mg DAILY PO Last administered on 05/02/16 08:49; Admin Dose 5 MG; Start 04/29/16 at 09:00 Levothyroxine Sodium (Synthroid) 75 mcg DAILY PO Last administered on 08:48; Admin Dose 75 MCG; Start 04/29/16 at 09:00 Montelukast Sodium (Singulair) 10 mg QHS PO Last administered on 05/01/16 20: 29; Admin Dose 10 MG; Start 04/28/16 at 21:00 Tamsulosin HCl (Flomax) 0.4 mg BID PO Last administered on 05/02/16 08:50; Admin Dose 0.4 MG; Start 04/28/16 at 21:00 Tiotropium [place] (Spiriva) 1 inh DAILY INH Last administered on 05/02/16 08: 50; Admin Dose 1 INH; Start 04/29/16 at 09:00 Zolpidem Tartrate (Ambien) 5 mg HS PRN PO INSOMNIA Last administered on 23:22; Admin Dose 5 MG; Start 04/28/16 at 19:30 Loratadine (Claritin) 10 mg DAILY PO Last administered on 05/02/16 08:49; Admin Dose 10 MG; Start 04/29/16 at 09:00 Fluticasone Propionate (Flonase 0.05% Nasal) 1 spray DAILY NASAL Last administered on 05/02/16 08:50; Admin Dose 1 SPRAY; Start 04/29/16 at 09:00 Latanoprost (Xalatan) 1 drop QHS BOTH EYES Last administered on 05/01/16 20:29 ; Admin Dose 1 DROP; Start 04/28/16 at 21:00 Atorvastatin Calcium (Lipitor) 20 mg DAILY@21 PO Last administered on 20:27; Admin Dose 20 MG; Start 04/28/16 at 21:00 Salmeterol Xinafoate/ Fluticasone (Advair 250/50 Diskus) 1 inh BID INH Last administered on 05/02/16 08:56; Admin Dose 1 INH; Start 04/28/16 at 21:00 Docusate Sodium (Colace) 100 mg BID PO Last administered on 05/02/16 08:49; Admin Dose 100 MG; Start 04/29/16 at 13:30 Diltiazem HCl (Cardizem Cd) 120 mg DAILY PO Last administered on 05/02/16 08: 51; Admin Dose 120 MG; Start 04/30/16 at 09:00 PRACHI DAY MD May 02, 2016 09:28
--- NOTE | 2016-05-02 13:21 | PDOCDIS ---
Discharge Instructions CONDITION Patient Condition: Good HOME CARE INSTRUCTIONS: Diet Instructions: Reduced SodiumSpecial Diet: regular ACTIVITY: Activity Restrictions: Slowly Increase Activity Rest between Activity Avoid heavy lifting Do not Drive Do not operate Machinery Avoid Heavy Housework Partial Weight Bearing Bathing Restrictions: Shower FOLLOW UP/APPOINTMENTS Appointments PRACHI Choi MD May 02, 2016 13:21
[2016-05-02] MEDS ORDERED: BISACODYL 10 MG SUPP PR PRN (13:30)
[2016-05-02] MEDS ORDERED: NA PHOSPHATE/BIPHOS 133 ML ENEMA PR PRN (13:30)
[2016-05-02] MEDS: RIVAROXABAN 20 MG TABLET PO SCH (18:11)
[2016-05-02 19:14] VITALS: BP 121/73; RESP 18
[2016-05-02] MEDS: ATORVASTATIN 20 MG TAB PO SCH (20:20)
[2016-05-02] MEDS: MONTELUKAST 10 MG TAB PO SCH (20:21)
[2016-05-02] MEDS: MAGNESIUM HYDROXIDE 30ML CUP PO SCH (20:30)
[2016-05-02] MEDS: LATANOPROST 0.005% 2.5 ML OPH BOTH EYES SCH (23:49)
[2016-05-03] MEDS: OXYCODONE/ACETAMINOPHEN (5/325) TAB PO PRN ×2 (00:41→09:36)
[2016-05-03] MEDS: ALBUTEROL HFA 8 GM INHALER INH SCH ×3 (01:00→08:32)
[2016-05-03] MEDS: traMADol 50 MG TAB PO SCH ×2 (06:16→11:25)
[2016-05-03 07:19] LABS: BASOPHILS % 0.6 % (0.0-2.0); EOSINOPHILS # 0.2 10^3/ul (0.0-0.5); EOSINOPHILS % 4.2 % (0.0-7.0); HEMATOCRIT 28.8 % (42.0-52.0); HEMOGLOBIN 9.6 g/dl (14.0-18.0); LYMPHOCYTES # 0.9 10^3/ul (0.8-2.9); LYMPHOCYTES % 19.2 % (15.0-51.0); MEAN CORPUSCULAR HEMOGLOBIN 27.1 pg (29.0-33.0); MEAN CORPUSCULAR HGB CONC 33.4 g/dl (32.0-37.0); MEAN CORPUSCULAR VOLUME 81.1 fl (82.0-101.0); MEAN PLATELET VOLUME 9.3 fl (7.4-10.4); MONOCYTE # 0.7 10^3/ul (0.3-0.9); MONOCYTES % 13.9 % (0.0-11.0); NEUTROPHILS % 62.1 % (39.0-77.0); PLATELET COUNT 208 10^3/UL (140-440); RED BLOOD COUNT 3.55 10^6/ul (4.70-6.10); UNCORRECTED WBC 4.8 10^3/ul (4.8-10.8); WHITE BLOOD COUNT 4.8 10^3/ul (4.8-10.8)
[2016-05-03 07:42] LABS: CONDITION 1; LH ANALYZER COMMENTS 1
[2016-05-03 08:05] VITALS: BP 126/71; RESP 20
[2016-05-03] MEDS: METOCLOPRAMIDE 10 MG TAB PO SCH (08:28)
[2016-05-03] MEDS: LEVOTHYROXINE 75 MCG TAB PO SCH (08:28)
[2016-05-03] MEDS: SENNA/DOCUSATE NA (8.6MG/50MG) TAB PO SCH (08:28)
[2016-05-03] MEDS: FAMOTIDINE 20 MG TAB PO SCH (08:28)
[2016-05-03] MEDS: DOCUSATE SODIUM 100 MG CAP PO SCH (08:28)
[2016-05-03] MEDS: LORATADINE 10 MG TAB PO SCH (08:29)
[2016-05-03] MEDS: TAMSULOSIN (SR) 0.4 MG CAP PO SCH (08:29)
[2016-05-03] MEDS: FINASTERIDE 5 MG TAB PO SCH (08:29)
[2016-05-03] MEDS: DILTIAZEM (CD) 120 MG CAP PO SCH (08:31)
[2016-05-03] MEDS: SALMETEROL/FLUTICASONE 250/50 INHA INH SCH (08:32)
[2016-05-03] MEDS: FLUTICASONE 0.05% 16 GM NAS SPRAY NASAL SCH (08:33)
[2016-05-03] MEDS: TIOTROPIUM 18 MCG CAPSULE INHA DEV INH SCH (09:36)
--- NOTE | 2016-05-03 12:09 | CONS ---
Date/Time of Note Date/Time of Note DATE: 05/03/16 TIME: 11:56 Consult Date/Type/Reason Admit Date/Time Apr 28, 2016 at 05:17 Initial Consult Date 04/28/2016 Type of Consultation: medicine Reason for Consultation Medical management: afib, hld, gerd, BPH, copd/asthma, hypothyroid Ordering Provider: PRACHI DAY MD Subjective Patient with no issues overnight. Working well with PT. Had bm last night. Pain controlled. Denies fevers, chills, nausea, vomiting, diarrhea, constipation, chest pain, sob, cough. Objective Vital Signs Date Time Temp Pulse Resp B/P Pulse Ox O2 Delivery O2 Flow Rate FiO2 05/03/16 08:05 98.6 80 20 126/71 96 04/30/16 06:45 Room Air Intake and Output 05/02/16 05/02/16 05/03/16 15:00 23:00 07:00 Intake Total 1060 ml 720 ml Output Total 750 ml 600 ml Balance 310 ml 120 ml Gen: NAD HEENT: no scleral icterus, OP clear CV: RRR, nml s1/s2, no m/r/g Lungs: CTAB, no w/r/r Abd: soft, Nt, ND Ext: no c/c/e Results/Medications Result Diagram: 05/03/16 0605 05/01/16 0439 Results 24 hrs Laboratory Tests Test 05/03/16 06:05 Basophils # 0.0 Basophils % 0.6 Blood Morphology Comment Eosinophils # 0.2 Eosinophils % 4.2 Hematocrit 28.8 L Hemoglobin 9.6 L Lymphocytes # 0.9 Lymphocytes % 19.2 Mean Corpuscular Hemoglobin 27.1 L Mean Corpuscular Hemoglobin Concent 33.4 Mean Corpuscular Volume 81.1 L Mean Platelet Volume 9.3 Monocytes # 0.7 Monocytes % 13.9 H Neutrophils # 3.0 Neutrophils % 62.1 Nucleated Red Blood Cells # 0.0 Nucleated Red Blood Cells % 0.0 Platelet Count 208 Red Blood Count 3.55 L Red Cell Distribution Width 17.0 H White Blood Count 4.8 Medications Current Medications Tramadol HCl (Ultram) 50 mg Q6 PO Last administered on 05/03/16t 11:25; Admin Dose 50 MG; Start 04/28/16 at 18:00 Oxycodone/ Acetaminophen (Percocet (5/ 325)) 1 tab Q3H PRN PO PAIN LEVEL 1-5; Start 04/28/16 at 06:30 Oxycodone/ Acetaminophen (Percocet (5/ 325)) 2 tab Q3H PRN PO PAIN LEVEL 6-10 Last administered on 05/03/16 09:36; Admin Dose 2 TAB; Start 04/28/16 at 06:30 Hydromorphone HCl (Dilaudid) 1 mg Q3H PRN IV PAIN LEVEL 1-3 Last administered on 04/28/16 15:12; Admin Dose 1 MG; Start 04/28/16 at 06:30 Hydromorphone HCl (Dilaudid) 1.5 mg Q3H PRN IV PAIN LEVEL 4-6 Last administered on 04/28/16 18:30; Admin Dose 1.5 MG; Start 04/28/16 at 06:30 Hydromorphone HCl (Dilaudid) 2 mg Q3H PRN IV PAIN LEVEL 7-10 Last administered on 04/30/16 07:41; Admin Dose 2 MG; Start 04/28/16 at 06:30 Naloxone HCl (Narcan) 0.2 mg Q2M PRN IV RESPIRATORY RATE LESS THAN 8; Start at 06:30 Senna/Docusate Sodium (Senokot-S) 1 tab BID PO Last administered on 05/03/16 08:28; Admin Dose 1 TAB; Start 04/28/16 at 21:00 Magnesium Hydroxide (Milk Of Mag) 30 ml BID PRN PO CONSTIPATION Last administered on 04/29/16 09:16; Admin Dose 30 ML; Start 04/28/16 at 06:30 Magnesium Hydroxide (Milk Of Mag) 30 ml HS PO Last administered on 05/01/16 20 :27; Admin Dose 30 ML; Start 04/30/16 at 21:00 Ondansetron HCl (Zofran Inj) 4 mg Q4H PRN IV NAUSEA; Start 04/28/16 at 06:30 Acetaminophen (Tylenol Tab) 1,000 mg Q4H PRN PO TEMP GREATER THAN 100.4 (ORAL) ; Start 04/28/16 at 06:30 Famotidine (Pepcid) 20 mg BID PO Last administered on 05/03/16 08:28; Admin Dose 20 MG; Start 04/28/16 at 21:00 Metoclopramide HCl (Reglan) 10 mg BID PO Last administered on 05/03/16 08:28; Admin Dose 10 MG; Start 04/28/16 at 21:00 Albuterol (Ventolin Hfa) 2 puff Q4 INH Last administered on 04/29/16 04:37; Admin Dose 2 PUFF; Start 04/28/16 at 21:00 Finasteride (Proscar) 5 mg DAILY PO Last administered on 05/03/16 08:29; Admin Dose 5 MG; Start 04/29/16 at 09:00 Levothyroxine Sodium (Synthroid) 75 mcg DAILY PO Last administered on 08:28; Admin Dose 75 MCG; Start 04/29/16 at 09:00 Montelukast Sodium (Singulair) 10 mg QHS PO Last administered on 05/02/16 20: 21; Admin Dose 10 MG; Start 04/28/16 at 21:00 Tamsulosin HCl (Flomax) 0.4 mg BID PO Last administered on 05/03/16 08:29; Admin Dose 0.4 MG; Start 04/28/16 at 21:00 Tiotropium [place] (Spiriva) 1 inh DAILY INH Last administered on 05/03/16 09: 36; Admin Dose 1 INH; Start 04/29/16 at 09:00 Zolpidem Tartrate (Ambien) 5 mg HS PRN PO INSOMNIA Last administered on 23:22; Admin Dose 5 MG; Start 04/28/16 at 19:30 Loratadine (Claritin) 10 mg DAILY PO Last administered on 05/03/16 08:29; Admin Dose 10 MG; Start 04/29/16 at 09:00 Fluticasone Propionate (Flonase 0.05% Nasal) 1 spray DAILY NASAL Last administered on 05/03/16 08:33; Admin Dose 1 SPRAY; Start 04/29/16 at 09:00 Latanoprost (Xalatan) 1 drop QHS BOTH EYES Last administered on 05/02/16 23:49 ; Admin Dose 1 DROP; Start 04/28/16 at 21:00 Atorvastatin Calcium (Lipitor) 20 mg DAILY@21 PO Last administered on 20:20; Admin Dose 20 MG; Start 04/28/16 at 21:00 Salmeterol Xinafoate/ Fluticasone (Advair 250/50 Diskus) 1 inh BID INH Last administered on 05/03/16 08:32; Admin Dose 1 INH; Start 04/28/16 at 21:00 Docusate Sodium (Colace) 100 mg BID PO Last administered on 05/03/16 08:28; Admin Dose 100 MG; Start 04/29/16 at 13:30 Diltiazem HCl (Cardizem Cd) 120 mg DAILY PO Last administered on 05/03/16 08: 31; Admin Dose 120 MG; Start 04/30/16 at 09:00 Bisacodyl (Dulcolax Supp) 10 mg DAILY PRN [place] CONSTIPATION Last administered on 05/02/16 17:12; Admin Dose 10 MG; Start 05/02/16 at 13:30 Sodium Biphosphate/ Sodium Phosphate (Fleet Enema) 133 ml DAILY PRN [place] CONSTIPATION; Start 05/02/16 at 13:30 Assessment/Plan Chief Complaint/Hosp Course 75 y/o male pmh HLD, BPH, hypothyroid, afib, copd/asthma, ELIANA, vit D deficiency with RTKA 10/[address] Song complicated by infected hardware which was later removed. Patient completed 6 weeks of IV abx. Now s/p R TKA 04/28/2016. Problems: (1) Status post total knee replacement, right (2) Afib (3) Hyperlipidemia (4) GERD (gastroesophageal reflux disease) (5) COPD (chronic obstructive pulmonary disease) (6) Hypothyroid (7) Allergic rhinitis (8) BPH (benign prostatic hyperplasia) Additional Assessment/Plan A/P Ortho #s/p R TKA -pain control per ortho -bowel regimen -pt per ortho -on xarelto which will ppx against VTE Cards #Afib -dilt -xarelto #HLD -atorva Heme #anemia-likely 2/2 surgical blood loss. Stable. No obvious signs of bleeding -cbc as outpatient in next 1-2 weeks. GI #GERD -pepcid Pulm #COPD/asthma -spiriva, advair, singular, proair #allergic rhinitis -claritin, flonase Endo #hypothyroid -levothyroxine #BPH -finasteride -flomax Dispo: DC home per ortho and PT today. Patient is medically cleared as well. Should follow up with pcp within 2 weeks. Should continue bowel regimen. Patient lives with at home and home pt arranged. DHAVAL ESTRELLA MD May 03, 2016 12:08
== END 2016-05-03 12:25 | DRG 468 ==
LOC: REC 05:17 → MS4 14:32 → MS1 04-30 05:35
PROVIDERS: ADMIT Orthopaedic Surgery; ATTEND Orthopaedic Surgery
PROC: 0SPC0JZ Removal of Synthetic Substitute from Right Knee Joint, Open Approach (ICD-10-PCS; 2016-04-28)
PROC: 0SRC0J9 Replacement of Right Knee Joint with Synthetic Substitute, Cemented, Open Approach (ICD-10-PCS; principal; 2016-04-28 07:00)
DX: T84.53XA Infection and inflammatory reaction due to internal right knee prosthesis, initial encounter (principal); I49.8 Other specified cardiac arrhythmias; B99.9 Unspecified infectious disease; E03.9 Hypothyroidism, unspecified; J45.909 Unspecified asthma, uncomplicated; G47.33 Obstructive sleep apnea (adult) (pediatric); N40.0 Benign prostatic hyperplasia without lower urinary tract symptoms; Z79.02 Long term (current) use of antithrombotics/antiplatelets
CPT/HCPCS: 73560; 73590; 80048; 81001; 81003; 85025; 85610; 85730; 86850; 86900; 86901; 87070; 87081; 87086; 90670; 90686; 97110; 97116; 97162; 97166; 97530; J0171; J0735; J1100; J1170; J1200; J1885; J2250; J2274; J2405; J2795; J3010; J3370; J3480; J7120